=== PATIENT | female | born 1995 | race Asian ===

== ENCOUNTER 2019-06-03 09:43 | Emergency (ER) | payer OTHER, SELFPAY ==
[2019-06-03 09:49] VITALS: BP 120/83; PULSE 91; RESP 16; TEMP 37; O2SAT 100
--- NOTE | 2019-06-03 09:51 | ED.GENADULT ---
HPI - General Adult General Chief complaint: Upper Respiratory Symptoms Stated complaint: Tonsilitis Time Seen by Provider: 06/03/19 09:45 Source: patient Mode of arrival: Ambulatory Limitations: no limitations History of Present Illness HPI narrative: 24-year-old female here for evaluation of a sore throat and muffled voice. States the symptoms been going on for the past week. 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 Has seen her medical department. Has been on decongestants and Cepacol drops and a nasal spray. She is here for his symptoms have not improved. Initial report was that she was on antibiotics however this does not appear to be the case. Related Data Home Medications Medication Instructions Recorded Confirmed ibuprofen 800 mg PO Q8H PRN 06/03/19 06/03/19 Allergies Allergy/AdvReac Type Severity Reaction Status Date / Time No Known Drug Allergies Allergy Verified 06/03/19 09:51 Review of Systems Constitutional Constitutional: Denies fever(s) ENT Ears, Nose, Mouth, and Throat: Reports neck pain, Reports sore throat and Reports throat swelling Cardiovascular Cardiovascular: Denies chest pain and Denies dyspnea Respiratory Respiratory: Denies cough and Denies dyspnea Gastrointestinal Gastrointestinal: Denies abdominal pain, Denies nausea and Denies vomiting Musculoskeletal Musculoskeletal: Denies myalgias, Denies arthralgias and Reports neck pain Integumentary/Breasts Skin/Breast: Denies rash Neurologic Neurologic: Denies behavioral changes Psychiatric Psychiatric: Denies behavioral changes Hematologic/Lymphatic Hematologic/Lymphatic: Denies easy bleeding and Denies easy bruising Allergic/Immunologic Allergic/Immunologic: Reports throat swelling Patient History Medical History Patient denies medical problems (Acute) Social History lives independently: Yes Smoking Status: Never smoker Exam Initial Vital Signs Initial Vital Signs: Vital Signs Temperature 98.6 F 06/03/19 09:49 Pulse Rate 91 H 06/03/19 09:49 Respiratory Rate 16 06/03/19 09:49 Blood Pressure 120/83 06/03/19 09:49 Pulse Oximetry 100 06/03/19 09:49 Const General: cooperative, comfortable and well developed Orientation: alert, awake and oriented x3 HENMT Mouth: oral mucosae normal Throat: abnormal tonsil bilaterally hypertrophy; no exudates, no peritonsillar masses, posterior oropharynx abnormal and no uvular edema Resp Effort & Inspection: normal respiratory effort Auscultation: clear to auscultation bilaterally Cardio Rate: regular rate Rhythm: regular rhythm Skin Lesions: no lesions Rashes: no rashes Neuro General: alert and awake Cognition: normal cognition Speech: speech normal Extrem General: normal to inspection and capillary refill normal Psych Appearance: grossly normal and well kempt Course Orders Ordered: ED Orders 06/03/19 09:50 Throat Culture Stat 06/03/19 10:15 Monotest Stat Test Serum,Qual Stat Discontinued Medications Dexamethasone (Decadron) 10 mg IV NOW ONE Stop: 06/03/19 09:50 Last Admin: 06/03/19 10:20 Dose: 10 mg Documented by: ZACHARY Sodium Chloride (Normal Saline 0.9%) 1,000 mls @ 1,000 mls/hr IV BOLUS ONE Stop: 06/03/19 10:48 Last Admin: 06/03/19 10:20 Dose: 1,000 mls/hr Documented by: ZACHARY Ketorolac Tromethamine (Toradol) 30 mg IV NOW ONE Stop: 06/03/19 09:50 Last Admin: 06/03/19 10:20 Dose: 30 mg Documented by: ZACHARY Penicillin G Benzathine (Bicillin L-A) 1,200,000 unit IM NOW ONE Stop: 06/03/19 11:28 Vital Signs Vital signs: Vital Signs - 8 hr 06/03/19 09:49 Temperature 98.6 F Pulse Rate 91 H Respiratory Rate 16 Blood Pressure 120/83 Pulse Oximetry 100 Medical Decision Making Lab Data Lab results reviewed: Yes I reviewed the patient's lab results. Labs: Lab Results 06/03/19 06/03/19 Range/Units 10:15 10:15 Serum , Qual Negative (Negative) Monoscreen Negative (Negative) Point of Care Testing Rapid Strep A Negative Point of care testing: Point of Care Testing Rapid Strep A Negative MDM Narrative Medical decision making narrative: Patient is maintaining her airway however she does have large tonsils. They are equal bilateral. The uvula is midline. I have low suspicion for peritonsillar abscess/retropharyngeal abscess currently. She is afebrile. She was given medicines here in the ER which she states improved her symptoms quite a bit. She was able to tolerate oral intake. She was able to tolerate her secretions. She was also hydrated. Her mono test was negative. was negative. She does have a negative strep test however I feel that given the low sensitivity of the rapid strep test and the severity of her symptoms that treating her for strep is not unreasonable. We did discuss a IM shot of Bicillin versus oral antibiotics. Patient opted for the Bicillin shot. Patient was given return precautions and follow-up instructions. She expressed understanding and agreement with plan. Discharge Plan Departure Patient Disposition: Home Clinical Impression: Pharyngitis Qualifiers: Pharyngitis/tonsillitis etiology: unspecified etiology Qualified Code(s): J02.9 - Acute pharyngitis, unspecified Instructions: DI for Pharyngitis/Tonsillopharyngitis -- Adult Activity Restrictions/Additional Instructions: Recommend that you increase your fluid intake. Liquids are more important than eating currently however you have no restrictions on your diet. It is just what you can tolerate. Contact your medical department for follow-up. Return to the emergency department for any new or worsening symptoms. Prescriptions: No Action ibuprofen 800 mg Tablet 800 mg PO Q8H PRN (Reason: pain fever) RF: 0 Stand Alone Forms: Work Release Note
[2019-06-03] MEDS: KETOROLAC 60 MG/2 ML VIAL 30 MG IV (10:20)
[2019-06-03] MEDS: SODIUM CHLORIDE 0.9% 1,000 ML 1000 ML IV (10:20)
[2019-06-03] MEDS: DEXAMETHASONE 10 MG/ML VIAL IV (10:20)
[2019-06-03 10:38] LABS: Monotest Negative (Negative)
[2019-06-03 10:47] LABS: Pregnancy Test Serum,Qual Negative (Negative)
[2019-06-03] MEDS: PENICILLIN G BENZATHINE 1,200,000 UNIT/2 ML SYRINGE 1200000 UNIT IM (11:39)
[2019-06-03 11:52] VITALS: BP 108/71; PULSE 82; RESP 17; O2SAT 97
== END 2019-06-03 11:55 | disposition home or self-care (01) ==
PROVIDERS: Emergency Provider Emergency Medicine
DX: J02.9 Acute pharyngitis, unspecified (principal); J35.1 Hypertrophy of tonsils
CPT/HCPCS: 36415; 84703; 86318; 87070; 87880; 96361; 96372; 96374; 96375; 99283; 99284; J0561; J1100; J1885

== ENCOUNTER 2019-06-07 11:17 | Emergency (ER) | payer OTHER, SELFPAY ==
[2019-06-07 11:20] VITALS: BP 116/72; PULSE 79; RESP 16; TEMP 36.7; O2SAT 100; BMI 21.9
--- NOTE | 2019-06-07 11:50 | PC.NURSE ---
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 concern for tonsillar abscess. voice muffled. pt able to maintain her own secretions. able to tolerate fluids. unable to eat solid foods due to swelling. tonsils appear erythematic and swollen. 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
[2019-06-07] MEDS: SODIUM CHLORIDE 0.9% 500 ML 1000 ML IV (12:00)
[2019-06-07] MEDS: ONDANSETRON 4 MG/2 ML INJ IV (12:27)
[2019-06-07] MEDS: DEXAMETHASONE 10 MG/ML VIAL IV (12:27)
[2019-06-07] MEDS: KETOROLAC 60 MG/2 ML VIAL 15 MG IV (12:27)
[2019-06-07 12:41] LABS: Add Manual Diff / Slide Review NO; Basophils Absolute Auto 0 /uL (0-100); Basophils Percent Auto 0.2 % (0-2); Eosinophils Absolute Auto 500 /uL (0-450); Eosinophils Percent Auto 2.8 % (2-4); Hematocrit 41.3 % (36-46); Hemoglobin 14.1 g/dL (12.0-16.0); Lymphocytes Absolute Auto 1900 /uL (1100-4500); Lymphocytes Percent Auto 11.2 % (25-40); Mean Corpuscular Volume 94.1 fL (80-100); Monocytes Absolute Auto 1500 /uL (0-900); Neutrophils Absolute Auto 13300 /uL (1500-7000); Neutrophils Percent Auto 76.8 % (50-75); Platelet Count 445 X10^3/uL (150-400); Red Blood Cell Count 4.39 X10^6/uL (4.0-5.2); Red Cell Distribution Width 12.1 % (11.6-14.8); White Blood Cell Count 17.3 X10^3/uL (4.5-11.0)
[2019-06-07 12:50] LABS: Blood Urea Nitrogen 9 mg/dL (7-17); Calcium 9.3 mg/dL (8.4-10.2); Carbon Dioxide 30 mmol/L (22-32); Chloride 98 mmol/L (98-107); Estimated Glomerular Filt Rate > 60.0 mL/min (>60); Glucose 101 mg/dL (70-100); HEMOLYSIS < 15 (0-50); Potassium 4.3 mmol/L (3.4-5.1); Sodium 138 mmol/L (137-145)
[2019-06-07] MEDS: AMPICILLIN/SULBACTAM 3 GM 3 GM in SODIUM CHLORIDE 0.9% 100 ML IV (12:53)
[2019-06-07 12:55] VITALS: BP 115/71; PULSE 75; RESP 17; O2SAT 100
--- NOTE | 2019-06-07 14:14 | PC.NURSE ---
pt refusing 2nd fluid bolus. PO challenged with water and tolerated well. Oscar, SENIOR QUALITY TECHNICIAN made aware.
--- NOTE | 2019-06-07 14:41 | ED_ITS ---
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 Patient denies fever, chills, nausea or vomiting, cough. She was treated for pharyngitis on Monday with Bicillin LA, IV Decadron, IV fluid. Patient reports the left side sore throat had improved after the treatment but she has recurring right-sided sore throat which radiates to ear. Patient has been hydrating herself with Pedialyte. Patient was referred from [facility] for treatment here. Patient had a CT scan done prior coming into ED this morning and they are concerned for peritons illar abscess. LMP 05/16/19. Patient has been taking ibuprofen at home for discomfort. Related Data Home Medications Medication Instructions Recorded Confirmed ibuprofen 800 mg PO Q8H PRN 06/03/19 06/07/19 Previous Rx's Medication Instructions Recorded amoxicillin-pot clavulanate 1 tab PO Q12H 14 Days #28 tab 06/07/19 [Augmentin] ondansetron 4 mg PO BID-TID 5 Days #7 tab 06/07/19 Allergies Allergy/AdvReac Type Severity Reaction Status Date / Time No Known Drug Allergies Allergy Verified 06/03/19 09:51 Review of Systems <MATT Guerrero - Last Filed: 06/08/19 02:21> Review of Systems Narrative: General: Denies fever, chills, fatigue, malaise, sweats. HEENT: See HPI Respiratory: Denies dyspnea, cough, wheezing, hemoptysis, sputum. Cardiovascular: Denies chest pain, palpitations, orthopnea, edema. Gastrointestinal: Denies nausea, vomiting, abdominal pain, diarrhea, constipation, melena. : Denies dysuria, frequency, incontinence, hematuria, urinary retention. Musculoskeletal: Denies weakness, joint pain or bony pain. Skin: Denies rash, skin lesions, or other. Neurologic: Denies weakness, headache, numbness, change in speech, confusion, seizures, incoordination. Psychiatric: No concerning psychosocial issues. 12-point review of systems is negative except for those stated above. Patient History <MATT Guerrero - Last Filed: 06/08/19 02:21> Medical History Patient denies medical problems (Acute) Social History lives independently: Yes Smoking Status: Never smoker alcohol intake frequency: 0-2 drinks per day Substance Use Type: does not use Exam <MATT Guerrero - Last Filed: 06/08/19 02:21> Narrative Exam Narrative: General appearance: well developed, well nourished, in no acute distress. Spitting saliva in emesis bag frequently due to pain to swallow. Head: normocephalic, atraumatic, no scalp lesions, non-tender. Eye: pupil equal, round. EOMI. Neck/Thyroid: neck supple, full range of motion, no visible masses. Skin: no suspicious rashes, lesions over visible areas. Warm and dry. Heart: no clubbing, no cyanosis, no edema. Lungs: Breathing even and unlabored. No stridor. No accessory muscles used. Chest: normal shape and expansion. Abdomen: non-obese, non-distended. Neurologic: alert and oriented. Cognitive exam, MANAGER OF ENGINEERING and PNS grossly intact on informal exam. Psych: good eye contact, normal affect. Initial Vital Signs Initial Vital Signs: Vital Signs Temperature 98.1 F 06/07/19 11:20 Pulse Rate 79 06/07/19 11:20 Respiratory Rate 16 06/07/19 11:20 Blood Pressure 116/72 06/07/19 11:20 Pulse Oximetry 100 06/07/19 11:20 HENMT Ears: hearing grossly normal bilaterally, external ears normal and TM's normal bilaterally Nose: external nose normal Face and sinus: normal facial exam Mouth: oral mucosae normal, lip normal, tongue normal and muffled voice Teeth and gingiva: dentition normal and gingiva normal Throat: peritonsillar mass on the right and uvula laterally displaced (To left) <Laura Garland DO - Last Filed: 06/08/19 07:10> Initial Vital Signs Initial Vital Signs: Vital Signs Temperature 98.1 F 06/07/19 11:20 Pulse Rate 79 06/07/19 11:20 Respiratory Rate 16 06/07/19 11:20 Blood Pressure 116/72 06/07/19 11:20 Pulse Oximetry 100 06/07/19 11:20 Scores <Oscar MATT Reyez - Last Filed: 06/08/19 02:21> GCS [place] coma scale eye opening: Spontaneous [place] coma scale verbal response: Orientated [place] coma scale motor response: Obey commands Lisseth coma scale total score: 15 Course <Oscar MATT Reyez - Last Filed: 06/08/19 02:21> Orders Ordered: Discontinued Medications Dexamethasone (Decadron) 10 mg IV NOW ONE Stop: 06/07/19 12:03 Last Admin: 06/07/19 12:27 Dose: 10 mg Documented by: KOFI Sodium Chloride (Normal Saline 0.9%) 500 mls @ 1,000 mls/hr IV BOLUS PRN PRN Reason: Fluid replacement Ampicillin Sodium/Sulbactam (Sodium 3 gm/ Sodium Chloride) 100 mls @ 100 mls/hr IV NOW ONE Stop: 06/07/19 12:06 Last Infusion: 06/07/19 13:46 Dose: 0 mls/hr Documented by: Admin: 06/07/19 12:53 Dose: 100 mls/hr Documented by: KOFI Sodium Chloride (Normal Saline 0.9%) 500 mls @ 1,000 mls/hr IV BOLUS ONE Stop: 06/07/19 14:09 Last Infusion: 06/07/19 13:43 Dose: 0 mls/hr Documented by: Admin: 06/07/19 12:00 Dose: 1,000 mls/hr Documented by: KOFI Sodium Chloride (Normal Saline 0.9%) 1,000 mls @ 1,000 mls/hr IV BOLUS ONE Stop: 06/07/19 15:07 Last Admin: 06/07/19 14:13 Dose: Not Given Documented by: KOFI Ketorolac Tromethamine (Toradol) 15 mg IV NOW ONE Stop: 06/07/19 12:03 Last Admin: 06/07/19 12:27 Dose: 15 mg Documented by: KOFI Ondansetron HCl (Zofran) 4 mg IV NOW ONE Stop: 06/07/19 12:09 Last Admin: 06/07/19 12:27 Dose: 4 mg Documented by: KOFI Vital Signs Vital signs: Vital Signs - 8 hr 06/07/19 11:20 06/07/19 12:55 Temperature 98.1 F Pulse Rate 79 75 Respiratory Rate 16 17 Blood Pressure 116/72 Blood Pressure [Left Arm] 115/71 Pulse Oximetry 100 100 <Laura Garland DO - Last Filed: 06/08/19 07:10> Orders Ordered: Discontinued Medications Dexamethasone (Decadron) 10 mg IV NOW ONE Stop: 06/07/19 12:03 Last Admin: 06/07/19 12:27 Dose: 10 mg Documented by: KOFI Sodium Chloride (Normal Saline 0.9%) 500 mls @ 1,000 mls/hr IV BOLUS PRN PRN Reason: Fluid replacement Ampicillin Sodium/Sulbactam (Sodium 3 gm/ Sodium Chloride) 100 mls @ 100 mls/hr IV NOW ONE Stop: 06/07/19 12:06 Last Infusion: 06/07/19 13:46 Dose: 0 mls/hr Documented by: Admin: 06/07/19 12:53 Dose: 100 mls/hr Documented by: KOFI Sodium Chloride (Normal Saline 0.9%) 500 mls @ 1,000 mls/hr IV BOLUS ONE Stop: 06/07/19 14:09 Last Infusion: 06/07/19 13:43 Dose: 0 mls/hr Documented by: Admin: 06/07/19 12:00 Dose: 1,000 mls/hr Documented by: KOFI Sodium Chloride (Normal Saline 0.9%) 1,000 mls @ 1,000 mls/hr IV BOLUS ONE Stop: 06/07/19 15:07 Last Admin: 06/07/19 14:13 Dose: Not Given Documented by: KOFI Ketorolac Tromethamine (Toradol) 15 mg IV NOW ONE Stop: 06/07/19 12:03 Last Admin: 06/07/19 12:27 Dose: 15 mg Documented by: KOFI Ondansetron HCl (Zofran) 4 mg IV NOW ONE Stop: 06/07/19 12:09 Last Admin: 06/07/19 12:27 Dose: 4 mg Documented by: KOFI Vital Signs Vital signs: Vital Signs - 8 hr 06/07/19 11:20 06/07/19 12:55 Temperature 98.1 F Pulse Rate 79 75 Respiratory Rate 16 17 Blood Pressure 116/72 Blood Pressure [Left Arm] 115/71 Pulse Oximetry 100 100 MDM - URI/Sore Throat <Oscar MATT Reyez - Last Filed: 06/08/19 02:21> Differential Diagnosis Differential diagnosis: Likely pharyngitis and other (Peritonsillar abscess) Medical Records Attestation: I reviewed the patient's medical records. Lab Data Attestation: I reviewed the patient's lab results. Result diagrams: 06/07/19 12:33 06/07/19 12:33 Labs: Lab Results 06/07/19 06/07/19 Range/Units 12:33 12:33 WBC 17.3 H (4.5-11.0) X10^3/uL RBC 4.39 (4.0-5.2) X10^6/uL Hgb 14.1 (12.0-16.0) g/dL Hct 41.3 (36-46) % MCV 94.1 (80-100) fL MCH 32.0 (26-34) PG MCHC 34.0 (30-36) % RDW 12.1 (11.6-14.8) % Plt Count 445 H (150-400) X10^3/uL Neut % (Auto) 76.8 H (50-75) % Lymph % (Auto) 11.2 L (25-40) % Hudspeth % (Auto) 9.0 (3-14) % Eos % (Auto) 2.8 (2-4) % Baso % (Auto) 0.2 (0-2) % Neut # (Auto) 99652 H (5020-3952) /uL Lymph # (Auto) 1900 (1974-8067) /uL [place]ud[place] # (Auto) 1500 H (0-900) /uL Eos # (Auto) 500 H (0-450) /uL Baso # (Auto) 0 (0-100) /uL Sodium 138 (137-145) mmol/L Potassium 4.3 (3.4-5.1) mmol/L Chloride 98 (98-107) mmol/L Carbon Dioxide 30 (22-32) mmol/L BUN 9 (7-17) mg/dL Creatinine 0.60 (0.52-1.04) mg/dL Estimated GFR > 60.0 (>60) mL/min BUN/Creatinine Ratio 15.0 (6-22) Glucose 101 H (70-100) mg/dL Calcium 9.3 (8.4-10.2) mg/dL MDM Narrative Medical decision making narrative: This is 24-year-old female who recently treated for pharyngitis 4 days ago with Bicillin LA injection return to ED with right-sided throat pain, swelling, muffled voice. Patient reports after the treatment on Monday, patient feel improvement on left side sore throat and swelling. Patient states is able to tolerate oral hydration and medications but hurts to swallow. Patient denies constitutional symptoms. Patient brought CD of her neck CT from this morning with a written report and was not interpreted at this time. However, patient was told she has peritonsillar abscess and needs to be drained. Physical exam shows significantly swollen right-sided tonsil was pushing uvula to the left side. Left test today shows leukocytosis with left shift with unremarkable chemistry. Patient was treated with IV hydration, Decadron, Unasyn 3 g, and Toradol. Patient reports the swelling and pain were improved and she was able to tolerate IV fluids without difficulty. Patient declined 2nd L of normal saline hydration. Patient requested for abcess drainage but was explained to the patient that this is not needed at this time. Patient is able to tolerate fluids and breathe without difficulty at this time and she will be treated conservatively with antibiotic medication. Patient has been afebrile with normal vital signs while in ED. Patient discharged to home with Augmentin for 14 day course and return precautions were discussed with the patient. She was given work off note for a day and to follow up with primary care physician in 2-3 days. Patient verbalized understanding and agrees with the treatment plan. <Laura Garland DO - Last Filed: 06/08/19 07:10> Lab Data Labs: Lab Results 06/07/19 06/07/19 Range/Units 12:33 12:33 WBC 17.3 H (4.5-11.0) X10^3/uL RBC 4.39 (4.0-5.2) X10^6/uL Hgb 14.1 (12.0-16.0) g/dL Hct 41.3 (36-46) % MCV 94.1 (80-100) fL MCH 32.0 (26-34) PG MCHC 34.0 (30-36) % RDW 12.1 (11.6-14.8) % Plt Count 445 H (150-400) X10^3/uL Neut % (Auto) 76.8 H (50-75) % Lymph % (Auto) 11.2 L (25-40) % Hud[place] % (Auto) 9.0 (3-14) % Eos % (Auto) 2.8 (2-4) % Baso % (Auto) 0.2 (0-2) % Neut # (Auto) 37705 H (1825-8240) /uL Lymph # (Auto) 1900 (0906-3716) /uL Hudspeth # (Auto) 1500 H (0-900) /uL Eos # (Auto) 500 H (0-450) /uL Baso # (Auto) 0 (0-100) /uL Sodium 138 (137-145) mmol/L Potassium 4.3 (3.4-5.1) mmol/L Chloride 98 (98-107) mmol/L Carbon Dioxide 30 (22-32) mmol/L BUN 9 (7-17) mg/dL Creatinine 0.60 (0.52-1.04) mg/dL Estimated GFR > 60.0 (>60) mL/min BUN/Creatinine Ratio 15.0 (6-22) Glucose 101 H (70-100) mg/dL Calcium 9.3 (8.4-10.2) mg/dL Discharge Plan Departure Patient Disposition: Home Clinical Impression: Abscess, peritonsillar Discharge Date/Time: 06/07/19 14:56 Instructions: DI for Peritonsillar Abscess -- Adult Activity Restrictions/Additional Instructions: You have been diagnosed with [Peritonsilar abscess and pharyngitis. You were treated with IV fluids, Decadron for swelling, IV antibiotic medications and pain medications here.]. What to do: *Take your medications as directed. Please start Augmentin tonight as a 1st dose for next 14 days twice a day. Please incorporate probiotics to prevent diarrhea. You can use Zofran as needed for nausea or vomiting. Continue to take [id number] Tylenol and or Motrin as needed for discomfort and fever. *Follow up with your primary care provider in 2-3 days, call for an appointment. Let them know you were seen in the ED and that we asked you to be seen in follow up. *Return to ED if you have any new, worsening, or concerning symptoms, such as [breathing difficulty, unable to tolerate fluids, chest pain, feeling like faint, high fever, or any acute concerns]. Prescriptions: New amoxicillin-pot clavulanate [Augmentin] 875-125 mg tablet 1 tab PO Q12H 14 Days Qty: 28 RF: 0 ondansetron 4 mg tablet,disintegrating 4 mg PO BID-TID 5 Days Qty: 7 RF: 0 No Action ibuprofen 800 mg Tablet 800 mg PO Q8H PRN (Reason: pain fever) RF: 0 Referrals: [facility] [Outside] Stand Alone Forms: Work Release Note
[2019-06-07 14:55] VITALS: BP 112/68; PULSE 74; RESP 16; O2SAT 97
== END 2019-06-07 14:56 | disposition home or self-care (01) ==
PROVIDERS: Emergency Provider Nurse Practitioner Family
DX: J36 Peritonsillar abscess (principal)
CPT/HCPCS: 36415; 80048; 85025; 96361; 96365; 96375; 99283; 99284; J0295; J1100; J1885; J2405

== ENCOUNTER → 2020-12-09 11:41 | Outpatient (CLI) | payer OTHER, SELFPAY ==
[2020-12-09 12:25] LABS: Appearance Urine UA CLEAR; Bilirubin Urine UA NEGATIVE (NEGATIVE); Color Urine UA YELLOW; Glucose Urine UA NEGATIVE (Negative); Ketones Urine UA NEGATIVE (NEGATIVE); Leukocyte Esterase Urine UA NEGATIVE (NEGATIVE); Nitrite Urine UA NEGATIVE (Negative); Occult Blood Urine UA 2+ (Negative); Protein Urine UA NEGATIVE (Negative); Urobilinogen Urine UA 0.2 E.U./dL (0.2); pH Urine UA 5.5 (4.5-8.0)
[2020-12-09 12:26] LABS: Bacteria Urine None Seen; RBC Urine None Seen (0-5/HPF); WBC Urine None Seen (0-5/HPF)
[2020-12-09 12:47] LABS: Add Manual Diff / Slide Review NO; Basophils Absolute Auto 100 /uL (0-100); Basophils Percent Auto 0.5 % (0-2); Eosinophils Absolute Auto 500 /uL (0-450); Eosinophils Percent Auto 3.1 % (2-4); Hemoglobin 13.6 g/dL (12.0-16.0); Lymphocytes Absolute Auto 2000 /uL (1100-4500); Lymphocytes Percent Auto 13.3 % (25-40); Mean Corpuscular HGB Conc 34.1 % (30-36); Mean Corpuscular Hemoglobin 31.8 PG (26-34); Mean Corpuscular Volume 93.4 fL (80-100); Monocytes Absolute Auto 1100 /uL (0-900); Monocytes Percent Auto 7.5 % (3-14); Neutrophils Absolute Auto 11300 /uL (1500-7000); Neutrophils Percent Auto 75.6 % (50-75); Platelet Count 287 X10^3/uL (150-400); Red Blood Cell Count 4.29 X10^6/uL (4.0-5.2); Red Cell Distribution Width 11.9 % (11.6-14.8); White Blood Cell Count 14.9 X10^3/uL (4.5-11.0)
[2020-12-09 12:53] LABS: Culture Indicated Urine Cult Not Indicated
[2020-12-10 06:39] LABS: RPR Screen Non Reactive (Non Reactive)
[2020-12-10 12:36] LABS: Varicella IgG Antibody <135 index (Immune >165)
[2020-12-10 15:51] LABS: Hepatitis B Surface Antigen NEGATIVE s/c (NEGATIVE); Rubella Antibody IgG 48.9 IU/mL (>15)
[2020-12-10 16:04] LABS: HIV 1 & 2 Ab/Ag 4th Gen Combo NEGATIVE (NEGATIVE); Hep C Virus Ab w/Reflex Quant NEGATIVE s/c (NEGATIVE)
== END ==
PROVIDERS: Referring Provider Specialist; Visit Provider Specialist
DX: Z34.01 Encounter for supervision of normal first pregnancy, first trimester (principal)
CPT/HCPCS: 36415; 80055; 81003; 81015; 86787; 86803; 86850; 86900; 86901; 87086; 87389

== ENCOUNTER → 2021-01-06 11:32 | Outpatient (CLI) | payer OTHER, SELFPAY ==
[2021-01-06 15:13] LABS: Urine N gonorrhoeae NOT DETECTED
[2021-01-06 15:18] LABS: Urine Chlamydia NOT DETECTED
== END ==
PROVIDERS: Visit Provider Specialist
DX: Z34.01 Encounter for supervision of normal first pregnancy, first trimester (principal); Z3A.12 12 weeks gestation of pregnancy
CPT/HCPCS: 87491; 87591

== ENCOUNTER → 2021-02-05 17:01 | Outpatient (CLI) | payer OTHER, SELFPAY ==
[2021-02-09 20:44] LABS: AFP, Serum 35.1 ng/mL (.); Estriol, Free 1.21 ng/mL (.); Inhibin A, Dimeric 105.71 pg/mL (.); Inhibin A, MoM 0.62 (.); Maternal Ethnicity Other (.); Maternal Weight 130 lbs (.); Number of Fetuses No (.); OSBR Risk 1 IN 10000 (.); Results Report (.); Test Results *Screen Negative* (.); hCG, MoM 0.45 (.); hCG, Serum 16065 mIU/mL (.)
== END ==
PROVIDERS: Referring Provider Specialist; Visit Provider Specialist
DX: Z34.02 Encounter for supervision of normal first pregnancy, second trimester (principal); Z3A.17 17 weeks gestation of pregnancy
CPT/HCPCS: 36415; 82105; 82677; 84702; 86336

== ENCOUNTER → 2021-03-02 07:26 | Outpatient (CLI) | payer OTHER, SELFPAY ==
--- NOTE | 2021-03-02 07:27 | DI.US.S_ITS ---
PROCEDURE: US OB >= 14 WEEKS FETUS INDICATIONS: ANATOMY OUTSIDE/PRIOR DATING DATA: Last menstrual period (LMP): 10/08/20. LMP-based estimated date of delivery (MAHIN): 07/15/21 . First dating scan (date and location): 12/09/20 . Estimated date of delivery (MAHIN) from first dating scan: 07/14/21 . TECHNIQUE: Real-time scanning was performed of the fetus, with image documentation and biometric measurements. Endovaginal scanning: Not needed COMPARISON: [facility], , OB >= 14 WEEKS FETUS, 02/05/2021, 16:49. FINDINGS: General: A single living intrauterine gestation is present. Presentation: Breech. Placenta: Placental position is posterior , without previa. Lower placental edge 2 cm or less from internal cervical os qualifies as low lying placenta. Amniotic fluid index: 12.9 cm, normal range is 5-24 cm. heart rate: 149 beats per minute. Maternal cervical canal: 3.1 cm long. Normal lower limit is 2.5 cm. biometrics: Biparietal diameter: 4.8 cm, 20 weeks 4 days Head circumference: 18.2 cm, 20 weeks 4 days Abdominal circumference: 16.9 cm, 21 weeks 6 days Femur length: 3.4 cm, 20 weeks 5 days Estimated gestational age from initial scan: 20 weeks 6 days Composite gestational age from present scan: 21 weeks 0 days Estimated weight and percentile: 410 g, 67th percentile Measurement variability for biometric dating: +/- 7 days from 14 weeks to 15 weeks 6 days gestation, +/- 10 days from 16 weeks to 21 weeks 6 days gestation, +/- 2 weeks from 22 weeks to 27 weeks 6 days gestation, +/- 3 weeks for 28 weeks gestation or later. weight reference: 4500 g or EFW >90/95% is considered macrosomia or large for gestational age. EFW <10% is small for gestational age. EFW 5% or less is considered intra-uterine growth restriction. Anatomic survey: Neuro: Ventricles are non-dilated at less than 10 mm. Cisterna magna is normal at 3-11 mm. Cerebellum is normal in size and morphology. Nuchal skin fold: Normal at less than 6 mm between 14-21 weeks gestational age. Face: Nose and lips, facial profile are normal. Spine: No evidence for spina bifida. Heart: 4-chambered heart is present, with normal ventricular outflow tracts. Diaphragm: Diaphragm is intact. Stomach: Left-sided stomach is present. Kidneys: No hydronephrosis. Normal is less than 5 mm in 2nd trimester, less than 7 mm in 3rd trimester. Cord: 3-vessel cord has orthotopic insertion. Bladder: Normal in size. Extremities: All 4 extremities identified. IMPRESSION: Appropriate interval growth, no anomaly seen. Delivery date is projected to be centered on 07/14/21. Dictated by: Darnell Funk M.D. on 03/02/2021 at 10:51 Approved by: Darnell Funk M.D. on 03/02/2021 at 11:00
== END ==
PROVIDERS: Referring Provider Specialist; Visit Provider Specialist
DX: Z34.02 Encounter for supervision of normal first pregnancy, second trimester (principal); Z3A.21 21 weeks gestation of pregnancy
CPT/HCPCS: 76811

== ENCOUNTER → 2021-04-02 09:59 | Outpatient (CLI) | payer OTHER, SELFPAY ==
[2021-04-02 11:52] LABS: Hemoglobin 12.2 g/dL (12.0-16.0)
[2021-04-02 12:05] LABS: GTT (PREG) 1 Hour PP 50gm Dose 151 mg/dL (76-139)
== END ==
PROVIDERS: Referring Provider Specialist; Visit Provider Specialist
DX: Z34.02 Encounter for supervision of normal first pregnancy, second trimester (principal); Z3A.25 25 weeks gestation of pregnancy
CPT/HCPCS: 36415; 82950; 85014; 85018

== ENCOUNTER → 2021-04-06 06:51 | Outpatient (CLI) | payer OTHER, SELFPAY ==
[2021-04-06 09:56] LABS: Glucose 1 Hour Gest 154 mg/dL (76-180)
[2021-04-06 10:05] LABS: Glucose Fasting Gestational 79 mg/dL (76-95)
[2021-04-06 10:09] LABS: Glucose 2 Hour Gest 131 mg/dL (76-155)
[2021-04-06 10:28] LABS: Glucose Tol Interp,Gestational INTERPRETATION
[2021-04-06 10:49] LABS: Glucose 3 Hour Gest 142 mg/dL (76-140)
== END ==
PROVIDERS: Referring Provider Specialist; Visit Provider Specialist
DX: O99.810 Abnormal glucose complicating pregnancy (principal)
CPT/HCPCS: 36415; 82951; 82952

== ENCOUNTER → 2021-06-17 11:52 | Outpatient (CLI) | payer OTHER, SELFPAY ==
[2021-06-18 19:35] LABS: Strep Grp B PCR NEG for Grp B Strep
== END ==
PROVIDERS: Referring Provider Specialist; Visit Provider Specialist
DX: Z34.03 Encounter for supervision of normal first pregnancy, third trimester (principal); Z3A.36 36 weeks gestation of pregnancy
CPT/HCPCS: 87653

== ENCOUNTER 2021-07-15 08:23 | Outpatient (CLI) | payer OTHER, SELFPAY ==
--- NOTE | 2021-07-15 08:55 | PM.OBTRLD ---
Visit Information Visit Information Date of evaluation: 07/15/21 Primary OB Provider: Vale Catalan Reason for Evaluation: Yes non-stress test Comments/Additional reasons for admission: Post dates [facility] Medical History (Updated 07/15/21 @ 08:56 by Vale Catalan MD) Cervical Papanicolaou smear negative within last 12 months (~11/19/19) HSIL (high grade squamous intraepithelial lesion) on Pap smear of cervix (~07/13/16) LGSIL (low grade squamous intraepithelial dysplasia) (~02/14/18) Patient denies medical problems Tonsillitis Surgical History [place] teeth extracted (~2015) Family History Mother No problems noted. Father Family estrangement Grandmother Hypertension Diabetes mellitus Grandfather Old age Grandmother Family estrangement Unknown whether patient has any health problems Grandfather Unknown whether patient has any health problems Family estrangement Brother No problems noted. 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 deven/taoism: Religious special deven needs: No Smoking Status: Never smoker second hand exposure: No alcohol intake: former (pre- : social/on weekends) substance use type: does not use Evaluation Evaluation Baseline heart rate: 130 Variability: Moderate (11-25) monitor accelerations: Present Monitor Decelerations: Absent Status: Category l Diagnosis, Plan/Disposition Final Diagnosis (1) 40 weeks gestation of : Status: Acute Plan/Disposition Plan: 40 weeks gestation with reactive nonstress test. Patient has an appointment for follow-up in 5 days. Routine precautions reviewed. OB Disposition: home
== END 2021-07-15 09:04 | disposition home or self-care (01) ==
LOC: OB 07-16 14:04
PROVIDERS: Referring Provider Specialist; Visit Provider Specialist
DX: O48.0 Post-term pregnancy (principal); Z3A.40 40 weeks gestation of pregnancy
CPT/HCPCS: 59025; G0378; G0379

== ENCOUNTER 2021-07-18 22:15 | Inpatient (IN) | payer OTHER, SELFPAY ==
[2021-07-18 23:28] LABS: Add Manual Diff / Slide Review NO; Basophils Absolute Auto 100 /uL (0-100); Basophils Percent Auto 0.8 % (0-2); Eosinophils Absolute Auto 200 /uL (0-450); Eosinophils Percent Auto 1.4 % (2-4); Hematocrit 40.5 % (36-46); Hemoglobin 13.7 g/dL (12.0-16.0); Lymphocytes Absolute Auto 1500 /uL (1100-4500); Lymphocytes Percent Auto 10.8 % (25-40); Mean Corpuscular HGB Conc 33.8 % (30-36); Mean Corpuscular Hemoglobin 31.2 PG (26-34); Mean Corpuscular Volume 92.3 fL (80-100); Monocytes Absolute Auto 1200 /uL (0-900); Monocytes Percent Auto 8.4 % (3-14); Neutrophils Absolute Auto 11200 /uL (1500-7000); Neutrophils Percent Auto 78.6 % (50-75); Platelet Count 220 X10^3/uL (150-400); Red Blood Cell Count 4.38 X10^6/uL (4.0-5.2); Red Cell Distribution Width 13.5 % (11.6-14.8); White Blood Cell Count 14.2 X10^3/uL (4.5-11.0)
[2021-07-18] MEDS: ZOLPIDEM 5 MG TABLET 10 MG PO (23:41)
[2021-07-19] VITALS (8 sets, daily range): BP systolic 116–131; BP diastolic 64–82; PULSE 82–103; RESP 16–18; TEMP 37.9–38.8; O2SAT 98–99
[2021-07-19 00:45] LABS: COVID19 -Nasal RAPID Negative (Negative)
[2021-07-19] MEDS: LACTATED RINGERS 1,000 ML 100 ML IV ×4 (04:55→21:10)
[2021-07-19] MEDS: OXYTOCIN PREMIX 30 UNIT/500 ML PLAST..BAG IV (05:50)
--- NOTE | 2021-07-19 10:02 | P.HPOB_ITS ---
OB HPI Date/Time Date of admission: 07/19/21 Date Patient Seen: 07/19/21 Time Patient Seen: 10:02 History of Present Condition Chief complaint: WATER RUPTURED : 1 Para: 0 Estimated Date of Delivery: 07/15/21 Estimated Gestational Age (weeks): 40 Narrative: Eula Mendoza is a 26 year old female admitted with spontaneous rupture membranes not in active labor History of Present care: good care, initiated at week # (8), number of visits (14) and pounds weight gain (43) Dating criteria: LMP confirmed by 1st trimester US Ultrasounds: normal mid trimester US Obstetrical complications: none Medical complications: none Preadmission Labs Blood type: O (+) positive -: Antibody screen: negative, GBS status: negative, HBsAG: negative, HIV: negative and RPR/VDLR: negative -: Chlamydia screen: not detected and Gonorrhea screen: not detected -: Rubella: immune and Varicella: not immune HCAB: negative Quad screen: Normal 1 hr GTT: 154 3 hr GTT: 1 hr (154), 2 hr (131) and 3 hr (142) Fasting blood glucose: 79 Evaluation Evaluation Baseline heart rate: 140 Variability: Moderate (11-25) monitor accelerations: Present Monitor Decelerations: Absent Contraction Frequency (minutes): 3 Uterine Contraction Intensity: Moderate Category of Tracing: Reactive Status: Category l Dilation (cm): 4 Effacement (%): 75 station: -1 Position of cervix: mid Consistency: medium PFSH Medical History (Updated 07/15/21 @ 08:56 by Vale Catalan MD) Cervical Papanicolaou smear negative within last 12 months (~11/19/19) HSIL (high grade squamous intraepithelial lesion) on Pap smear of cervix (~07/13/16) LGSIL (low grade squamous intraepithelial dysplasia) (~02/14/18) Patient denies medical problems Tonsillitis Surgical History [place] teeth extracted (~2015) Family History Mother No problems noted. Father Family estrangement Grandmother Hypertension Diabetes mellitus Grandfather Old age Grandmother Family estrangement Unknown whether patient has any health problems Grandfather Unknown whether patient has any health problems Family estrangement Brother No problems noted. 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 deven/jehovah's witness: [employer] special deven needs: No Smoking Status: Never smoker second hand exposure: No alcohol intake: former (pre- : social/on weekends) substance use type: does not use Meds Home Medications and Allergies Home Medications Medication Instructions Recorded Confirmed Type prenat.vits,kristin,uar-xgaq-esfwp 1 tab PO DAILY 12/02/20 07/19/21 History Allergies Allergy/AdvReac Type Severity Reaction Status Date / Time No Known Drug Allergies Allergy Verified 12/09/20 11:12 Review of Systems Review of Systems Narrative: Patient have leakage fluid beginning at 9:30 p.m. on 07/18. Good movement. Now having increased contractions on Pitocin. No headaches, scotomata, epigastric pain. OB Exam Narrative Exam Narrative: Blood pressure 139/84, pulse 93, temperature 97.8? HEENT exam within normal limits. Lungs are clear to auscultation percussion. Heart is regular rate and rhythm no S3-S4 murmurs. Abdomen is gravid. Fetus is vertex. Extremities without edema and nontender Objective Labs Result Diagrams: 07/18/21 23:00 Labs: Laboratory Results - last 24 hr 07/18/21 07/18/21 07/19/21 23:00 23:00 00:00 WBC 14.2 H RBC 4.38 Hgb 13.7 Hct 40.5 MCV 92.3 MCH 31.2 MCHC 33.8 RDW 13.5 Plt Count 220 Neut % (Auto) 78.6 H Lymph % (Auto) 10.8 L [place] % (Auto) 8.4 Eos % (Auto) 1.4 L Baso % (Auto) 0.8 Neut # (Auto) 35186 H Lymph # (Auto) 1500 [place] # (Auto) 1200 H Eos # (Auto) 200 Baso # (Auto) 100 SARS-CoV-2 (PCR) Negative Blood Type O Positive Antibody Screen Negative Assessment and Plan Assessment and Plan Assessment and Plan narrative: 40 week gestation with spontaneous rupture of membranes. Pitocin begun. Patient is requesting epidural catheter for pain control. Anticipate vaginal delivery.
[2021-07-19] MEDS: CALCIUM CARBONATE 500 MG TAB 1000 MG PO (16:54)
[2021-07-19] MEDS: FENT 2MCG/ML BUPIV 0.125% EPI 200 MCG/100 ML PLAST..BAG 10 MCG EPIDURAL (17:46)
[2021-07-19] MEDS: fentaNYL 100 MCG/2 ML INJ IV (18:22)
--- NOTE | 2021-07-19 18:32 | PM.PREOP ---
Pre-operative Note COVID-19 COVID-19 status: Negative Result date/Date tested (Pos, Neg/Pending): 07/19/21 Interval Note History & Physical reviewed/Exam performed by Physician: Yes Changes to H&P: Yes H&P completed within 30 days and has changed as indicated here:: 1st stage arrest
--- NOTE | 2021-07-19 18:33 | PM.OBPNLAB ---
Date/Time Date Patient Seen: 07/19/21 Time Patient Seen: 18:33 Pain Control Pain control: epidural Pelvic Exam Dilation (cm): 8 Effacement (%): 75 station: -1 Contractions Contractions on admission: regular Monitor mode: External Contraction frequency (min): 3 Contraction duration (min): 1 Contraction pattern: Regular Contraction intensity: Strong/Firm Status status: Category l Heart Rate Baseline: 150 Monitor Accelerations: Present Monitor Decelerations: Periodic Monitor Variability: Moderate Assessment and Plan Plan: Comments: 1st stage arrest plan for section
[2021-07-19] MEDS: CEFAZOLIN 2 GM/20 ML SYRINGE IV (19:04)
--- NOTE | 2021-07-19 19:14 | SUR.OPER ---
Supine on Padded OR bed, head on pillow, safety belt at thigh, arms secured on padded arm boards at <90 degrees abduction. Bump under right buttock. Legs uncrossed with pillow under knees, gel pad to heels, tape over blanket to lower legs.
--- NOTE | 2021-07-19 19:21 | SUR.OPER ---
VIABLE MALE INFANT DELIVERED AT 1914. CORD BLOOD AND PLACENTA TO OB WITH RN
--- NOTE | 2021-07-19 20:07 | PM.OP.1 ---
Operative Date/Time/Diagnoses Date of procedure: 07/19/21 Time of procedure: 20:07 Pre-op diagnosis: 1st stage arrest Post-op diagnosis: same Procedure & Clinicians Procedure: Primary low-transverse section Same procedure as scheduled: Yes Indications: 1st stage arrest Surgeon: Vale Catalan Click Yes if Unassisted: Yes Anesthesia Type: Epidural Operative Notes Findings: Normal tubes, ovaries, and uterus. Viable male infant in the direct OP position. Apgars were 9 and 9 weight 7 lb 13 oz Closure Type: primary Specimen(s): none sent Applied: catheter (Casillas) Estimated Blood Loss (mL): 400 Blood products transfused: none Procedure in detail: The patient was brought to the operating room where she underwent bolus of her epidural for anesthesia. She was placed in a supine position with a left lateral tilt. A [place] catheter was in place. Pulsatile stockings were placed and functional throughout the case. 2 g of Ancef were given IV prior to the incision. Warming was in place. The patient was prepped and draped in usual sterile fashion. A low transverse incision was made with a scalpel and the incision was carried down to the fascial layer which was incised transversely with scissors. The midline attachments are superiorly and inferiorly. Some bleeding was controlled Bovie. The rectus muscles were in the midline and the peritoneal incision was made with no damage to internal structures. The peritoneum was incised and superiorly and inferiorly. The incision was stretched with the surgeon and blood and plasma laboratory assistant placing traction. Bladder blade was placed and a bladder flap was developed and the bladder held away from the lower uterine segment. An incision was made in the uterus with the scalpel and the incision was extended with stretching. The head was elevated out of the abdomen and with fundal pressure by the blood and plasma laboratory assistant the baby was delivered. The infant was bulb suctioned for clear fluid and handed off to the warmer. Cord blood was collected. The placenta delivered spontaneously with traction. The uterus was cleaned with clean laps. The uterine incision was closed in 2 layers of 0 chromic suture the first a running locking layer the second an imbricating layer. The blood and plasma laboratory assistant was helping to expose the incision. The bladder peritoneum was repaired with 2-0 Vicryl suture. The gutters were cleaned of any remaining fluids and ovaries and tubes were observed to be normal. Adequate hemostasis was noted. The perineum was closed with 2-0 Vicryl suture. The fascia layer was closed with 0 Vicryl suture with 2 stitches. The blood and plasma laboratory assistant repairing half the incision with helping to retract and expose the incision for the other half. The incision was irrigated and adequate hemostasis noted. The incision was closed with interrupted 3-0 Vicryl sutures and then a subcuticular stitch of 4-0 Vicryl suture. Steri-Strips were placed. The uterus was massaged to remove any clots. The patient went to recovery room in good condition. Counts of instruments and sponges were correct. Complications: none Post-operative Condition: stable Disposition: other ( Center) Plan for aftercare: Routine post section care
[2021-07-19] MEDS: OXYCODONE IR 5 MG TABLET PO (20:20)
--- NOTE | 2021-07-19 20:38 | SUR.PHASEI ---
Transferred to center. Recieved in room by LEEANNA Guzmán.
[2021-07-19] MEDS: ACETAMINOPHEN 325 MG TABLET 650 MG PO (21:00)
[2021-07-19] MEDS: METHYLERGONOVINE 0.2 MG/ML VIAL IM (21:46)
[2021-07-20] MEDS: miSOPROStoL 200 MCG TABLET 800 MCG PR (01:24)
[2021-07-20 02:12] VITALS: TEMP 37.2
[2021-07-20] MEDS: KETOROLAC 30 MG/ML VIAL IV (02:12)
[2021-07-20 06:51] LABS: Add Manual Diff / Slide Review NO; Basophils Absolute Auto 100 /uL (0-100); Basophils Percent Auto 0.2 % (0-2); Eosinophils Absolute Auto 0 /uL (0-450); Hematocrit 34.3 % (36-46); Hemoglobin 11.8 g/dL (12.0-16.0); Lymphocytes Absolute Auto 1300 /uL (1100-4500); Lymphocytes Percent Auto 4.3 % (25-40); Mean Corpuscular HGB Conc 34.3 % (30-36); Mean Corpuscular Hemoglobin 31.4 PG (26-34); Mean Corpuscular Volume 91.6 fL (80-100); Monocytes Absolute Auto 2000 /uL (0-900); Monocytes Percent Auto 6.5 % (3-14); Neutrophils Absolute Auto 26900 /uL (1500-7000); Platelet Count 175 X10^3/uL (150-400); Red Blood Cell Count 3.74 X10^6/uL (4.0-5.2); Red Cell Distribution Width 13.1 % (11.6-14.8); White Blood Cell Count 29.9 X10^3/uL (4.5-11.0)
--- NOTE | 2021-07-20 06:55 | P.PNOB_ITS ---
Subjective - OB Subjective Patient comments: incisional pain baby status: doing well and nursing well [place] feeding status: exclusively breast feeding Date Patient Seen: 07/20/21 Time Patient Seen: 06:55 Interval history: Patient denies headaches, scotomata, epigastric pain. No nausea. She complains of incisional pain. She finally had a successful . Exam Vital Signs (past 8 hours): - Blood pressure 134/84, pulse of 80, temperature 36.4? 07/20/21 02:12 Temperature 98.9 F Oxygen Delivery Method Room Air Narrative Exam Narrative: Abdomen is soft, nontender. Uterus is firm, up just above umbilicus, appropriately tender. Dressing is dry. Mild lochia. Extremities without edema and nontender. Objective Labs Result Diagrams: 07/20/21 06:31 Labs: Laboratory Results - last 24 hr 07/20/21 06:31 WBC 29.9 H D RBC 3.74 L Hgb 11.8 L Hct 34.3 L MCV 91.6 MCH 31.4 MCHC 34.3 RDW 13.1 Plt Count 175 Neut % (Auto) 89.0 H Lymph % (Auto) 4.3 L [place] % (Auto) 6.5 Eos % (Auto) 0.0 L Baso % (Auto) 0.2 Neut # (Auto) 27333 H Lymph # (Auto) 1300 [place] # (Auto) 2000 H Eos # (Auto) 0 Baso # (Auto) 100 Assessment & Plan Plan day: 1 plan OB: routine postop care Time Spent With Patient Time: Total time spent is greater than 50% in coordination of care (as documented) at patient's floor/unit and/or counseling patient: Time with patient: less than 15 minutes
[2021-07-20] MEDS: ACETAMINOPHEN 325 MG TABLET 650 MG PO ×3 (08:32→23:10)
[2021-07-20] MEDS: OXYCODONE IR 5 MG TABLET PO ×3 (08:32→23:10)
[2021-07-20] MEDS: IBUPROFEN 600 MG TABLET PO ×3 (08:33→23:10)
[2021-07-20] MEDS: DOCUSATE 100 MG CAPSULE 200 MG PO (08:36)
[2021-07-21] MEDS: OXYCODONE IR 5 MG TABLET PO ×2 (04:38→12:37)
[2021-07-21] MEDS: IBUPROFEN 600 MG TABLET PO ×2 (06:33→12:37)
[2021-07-21] MEDS: ACETAMINOPHEN 325 MG TABLET 650 MG PO ×2 (06:34→12:36)
--- NOTE | 2021-07-21 07:45 | P.DS_ITS ---
Discharge Providers Provider Date of admission: 07/18/21 22:15 Discharge Date: 07/21/21 Consults: 07/18/21 23:18 Consult to Anesthesiology Urgent Comment: Consulting Provider: Anesthesiologist Reason for consultation: Epidural Has provider been notified: No 07/19/21 21:15 Consult to Engineer Systems Routine Comment: Discharge provider: Vale Catalan MD Summary Hospital Course Date Patient Seen: 07/21/21 Time Patient Seen: 07:46 Diagnoses: Term with premature rupture membranes, 1st stage arrest, primary low- transverse section Hospital Course: Patient arrived on Labor and delivery with spontaneous rupture membranes. She was not in active labor so Pitocin was begun. She received an epidural catheter for pain control. She had 1st stage arrest and underwent a primary low- transverse section. Probable early endometritis with fever at time of section. Patient was given IV antibiotics for 24 hours. She has remained afebrile. She is passing gas. Urinating and ambulating well. Pain is under control. She is breast-feeding without difficulty. Peripartum Data Delivery Method: Section complications: none [place] 1: Gender: Male Disposition of : home Discharge Diagnosis (1) Delivery by section of full-term infant: Status: Acute (2) Endometritis: Status: Acute Status at Discharge Cognitive/behavioral status at discharge: oriented Functional status at discharge: independent ambulation Overall status at discharge: patient is progressing back to baseline Time Spent with Patient Time attestation: Total time spent providing and/or coordinating discharge services: Time spent: Less than 30 minutes Objective Labs Result Diagrams: 07/20/21 06:31 Exam Vital Signs (past 8 hours): Blood pressure 129/74, pulse of 88, temperature 98? Oxygen Delivery Method Room Air Narrative Exam Narrative: Patient's abdomen is soft, nontender. Uterus is firm, at U, nontender. Dressing is clean, dry, intact. Mild lochia. Extremities without edema and n ontender. Patient's blood type is O positive, she is rubella immune, she received Tdap in the 3rd trimester. Discharge Plan Discharge Plan Patient Disposition: Home Discharge orders & Medications Prescriptions: New oxycodone-acetaminophen 5-325 mg Tablet 1 tab PO Q4HR PRN (Reason: Pain, Moderate (4-6)) Qty: 30 0RF docusate sodium 100 mg Capsule 200 mg PO DAILY Qty: 30 0RF ibuprofen 600 mg Tablet 600 mg PO Q6H PRN (Reason: Fever/Mild Pain (1-3)) Qty: 30 0RF Continued prenat.vits,kristin,yne-mtko-lfsca Tablet 1 tab PO DAILY 0RF Follow up/Referrals: Vale Catalan MD [Physician] - 1 Week (aquacel removal) Diet/Activity/Treatments Diet: Regular Activity: nothing in vagina or lifting over 20 lb for 6 weeks Skin/Wound/Dressing Care Report to your healthcare provider any signs of infection, such as:: chills, fever, increased pain and unusual redness Dressing: Leave dressing on until 1 week postop visit
[2021-07-21 12:36] VITALS: TEMP 36.7
[2021-07-21 12:37] VITALS: TEMP 36.7
[2021-07-21] MEDS: DOCUSATE 100 MG CAPSULE 200 MG PO (12:38)
[2021-07-21 18:16] VITALS: BP 120/73; PULSE 84; RESP 16; TEMP 36.7
== END 2021-07-21 13:30 | disposition home or self-care (01) | DRG 786 ==
PROVIDERS: Admitting Provider Specialist; Referring Provider Specialist; Visit Provider Specialist
PROC: 10D00Z1 Extraction of Products of Conception, Low, Open Approach (ICD-10-PCS; CPT 59514; principal; 2021-07-19 19:00)
DX: O62.1 Secondary uterine inertia (principal); O75.3 Other infection during labor; Z3A.40 40 weeks gestation of pregnancy; Z37.0 Single live birth; Z20.822 Contact with and (suspected) exposure to COVID-19
CPT/HCPCS: 01967; 01968; 36415; 59050; 59510; 84112; 85025; 86850; 86900; 86901; 87635; C9803; G0379; J0690; J1100; J1885; J2210; J2274; J2405; J2590; J2765; J3010; S0191

== ENCOUNTER 2022-09-13 09:29 | Emergency (ER) | payer OTHER, SELFPAY ==
[2022-09-13 09:30] VITALS: BP 142/93; PULSE 86; RESP 15; TEMP 36.9; O2SAT 96; BMI 23.4
[2022-09-13 10:42] LABS: Influenza A - CEPHEID Flu A NEGATIVE (NEGATIVE); Influenza B - CEPHEID Flu B NEGATIVE (NEGATIVE); Respiratory Syncytial Virus Negative (Negative)
[2022-09-13 10:50] LABS: COVID-19 CEPHEID 4-PLEX PCR Negative (Negative)
--- NOTE | 2022-09-14 07:34 | ED.URI ---
HPI - URI/Sore Throat General Chief Complaint: Upper Respiratory Symptoms Stated Complaint: sore throat Time Seen by Provider: 09/13/22 09:48 Source: patient Mode of arrival: Ambulatory History of Present Illness HPI Narrative: 27-year-old female presenting with upper respiratory infection type symptoms and sore throat. Patient noted symptoms starting over the last 2-3 days, associated sick contacts with the patient's son who is an infant. No measured fevers. Patient continues to tolerate oral intake without difficulty, no drooling, no difficulty opening the mouth. No productive cough. Patient has had upper airway congestion. Related Data Home Medications Medication Instructions Recorded Confirmed prenat.vits,kristin,tra-mxjb-kqdvc 1 tab PO DAILY 12/02/20 08/31/21 Previous Rx's Medication Instructions Recorded norethindrone acetate 1.5 1 tab PO DAILY #63 tabs 03/08/22 mg-ethinyl estradiol 30 mcg tablet (Junel) Allergies Allergy/AdvReac Type Severity Reaction Status Date / Time No Known Drug Allergies Allergy Verified 09/13/22 09:39 Patient History Medical History Cervical Papanicolaou smear negative within last 12 months (~11/19/19) Delivery by section of full-term (~07/19/21) HSIL (high grade squamous intraepithelial lesion) on Pap smear of cervix (~07/13/16) LGSIL (low grade squamous intraepithelial dysplasia) (~02/14/18) Patient denies medical problems Tonsillitis Surgical History [place] teeth extracted (~2015) Family History Mother No problems noted. Father Family estrangement Grandmother Hypertension Diabetes mellitus Grandfather Old age Grandmother Family estrangement Unknown whether patient has any health problems Grandfather Unknown whether patient has any health problems Family estrangement Brother No problems noted. 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 Nursing note reviewed Constitutional: interactive HENT: Moist mucous membranes, no posterior oropharyngeal swelling or lesions noted, no significant exudate, no trismus EYES: No scleral icterus NECK: no masses CV: Well perfused peripherally, no cyanosis present PULM: Unlabored respirations, symmetric chest rise ABD: Non-distended MS: No gross deformities, no asymmetric edema noted SKIN: Warm and dry. PSYCH: Appropriate affect NEURO: Follows simple commands, moves extremities, interactive with exam Initial Vital Signs Initial Vital Signs: Vital Signs Temperature 98.4 F 09/13/22 09:30 Pulse Rate 86 09/13/22 09:30 Respiratory Rate 15 09/13/22 09:30 Blood Pressure 142/93 H 09/13/22 09:30 Pulse Oximetry 96 09/13/22 09:30 Oxygen Delivery Method 09/13/22 09:30 MDM - URI/Sore Throat Lab Data Labs: Lab Results 09/13/22 Range/Units 09:38 SARS-CoV-2 (PCR) Negative (Negative) Influenza A (RT-PCR) Flu a negative (NEGATIVE) Influenza B (RT-PCR) Flu b negative (NEGATIVE) RSV (PCR) Negative (Negative) MDM Narrative Medical decision making narrative: 27-year-old female presenting with upper respiratory type symptoms. On presentation, vital signs notable for mild hypertension otherwise reassuring. Physical exam notable for well-appearing 27-year-old female in no acute distress, reassuring cardiopulmonary exam, benign abdomen. Initial concern for viral syndrome versus focal bacterial infection, occult sepsis. Patient is well-appearing on bedside exam, no evidence of dehydration, patient continues to tolerate oral intake without difficulty. Patient without focal pulmonary findings on bedside exam to suggest focal bacterial pneumonia. Patient's vital signs are uric acids occult sepsis. Discussed probability of nonspecific viral syndrome, viral swab was ordered and pending. Discussed plan for conservative outpatient management follow up. Patient agreeable to this plan and subsequently discharged in stable condition. Return precautions discussed. Discharge Plan Departure Patient Disposition: Home Clinical Impression: Upper respiratory infection Instructions: DI for Viral Upper Respiratory Infection -- Adult Prescriptions: No Action norethindrone ac-eth estradiol [ (21)] 1.5-30 mg-mcg tablet 1 tab PO DAILY Qty: 63 3RF prenat.vits,kristin,aax-lexs-tqpxi Tablet 1 tab PO DAILY Referrals: Miscellaneous,Doctor, MD [Primary Care Provider] - Stand Alone Forms: Patient Portal/API
== END 2022-09-13 09:54 | disposition home or self-care (01) ==
PROVIDERS: Emergency Provider Emergency Medicine
DX: J06.9 Acute upper respiratory infection, unspecified (principal); Z20.822 Contact with and (suspected) exposure to COVID-19
CPT/HCPCS: 0241U; 99281; 99282

== ENCOUNTER → 2023-06-05 12:22 | Outpatient (CLI) | payer OTHER, SELFPAY ==
[2023-06-05 14:57] LABS: HCG Quantitative /Beta subunit 5996.7 mIU/mL
== END ==
PROVIDERS: Referring Provider Obstetrics & Gynecology; Visit Provider Obstetrics & Gynecology
DX: O20.9 Hemorrhage in early pregnancy, unspecified (principal)
CPT/HCPCS: 36415; 84702

== ENCOUNTER 2023-06-06 11:21 | Emergency (ER) | payer OTHER, SELFPAY ==
[2023-06-06 11:24] VITALS: BP 110/70; PULSE 72; RESP 18; TEMP 37.2; O2SAT 99; BMI 23.4
--- NOTE | 2023-06-06 11:32 | DI.US.S_ITS ---
PROCEDURE: US PELVIC COMPLETE INDICATIONS: URINE POSITIVE TEST. 5 DAYS BLEEDING. TECHNIQUE: Real-time scanning was performed of the pelvic organs, with image documentation. Additional endovaginal scanning was necessary due to incomplete visualization of the adnexal and endometrial structures by transabdominal scanning. COMPARISON: None. FINDINGS: Uterus: Uterus is anteverted and normal in size at 8.8 x 5.9 x 4.6 cm. The myometrium is homogeneous. The endometrium measures 18.5 mm combined thickness. Endometrium is thickened and heterogeneous with normal vascularity. No evidence of intrauterine . Ovaries: The right ovary measures 3.2 x 1.7 x 1.5 cm, with a calculated ovarian volume of 4.3 cc. The left ovary measures 2.8 x 1.9 x 1.9 cm, with a calculated ovarian volume of 5.2 cc. Probable left ovarian corpus luteal cyst measuring 1.3 cm. The ovaries have a normal sonographic appearance. Less than 12 follicles can be seen in each ovary. No adnexal masses are seen. Other: No pathologic free abdominal or pelvic fluid. IMPRESSION: 1. The endometrial echo complex is thickened and heterogeneous without evidence of intrauterine . Findings may represent spontaneous . Recommend beta HCG trend and follow-up ultrasound as clinically indicated to exclude ectopic . 2. Possible left ovarian corpus luteal cyst. The ovaries are otherwise normal in appearance. We strive to produce accurate, complete, and clear reports of imaging services. To assist us in improving patient care, this report was composed using standard report templates and voice recognition software. Therefore, it may contain abnormal punctuation, insertions and/or omissions. Occasional wrong-word or sound-alike substitutions may occur. Though we review the report and make efforts to correct it, we do recommend that the report be read carefully in proper context to recognize any text inaccuracies. Dictated by: Boy Gutierrez M.D. on 06/06/2023 at 13:02 Approved by: Boy Gutierrez M.D. on 06/06/2023 at 13:04
[2023-06-06 11:56] LABS: Add Manual Diff / Slide Review NO; Basophils Absolute Auto 0 /uL (0-100); Basophils Percent Auto 0.4 % (0-2); Eosinophils Absolute Auto 400 /uL (0-450); Eosinophils Percent Auto 3.5 % (2-4); Hematocrit 42.8 % (36-46); Hemoglobin 14.3 g/dL (12.0-16.0); Lymphocytes Absolute Auto 2000 /uL (1100-4500); Lymphocytes Percent Auto 17.4 % (25-40); Mean Corpuscular HGB Conc 33.4 % (30-36); Mean Corpuscular Hemoglobin 31.3 PG (26-34); Mean Corpuscular Volume 93.8 fL (80-100); Monocytes Absolute Auto 1000 /uL (0-900); Monocytes Percent Auto 8.3 % (3-14); Neutrophils Absolute Auto 8200 /uL (1500-7000); Neutrophils Percent Auto 70.4 % (50-75); Platelet Count 327 X10^3/uL (150-400); Red Blood Cell Count 4.56 X10^6/uL (4.0-5.2); Red Cell Distribution Width 12.2 % (11.6-14.8); White Blood Cell Count 11.7 X10^3/uL (4.5-11.0)
[2023-06-06 12:16] LABS: Alanine Aminotransferase 12 IU/L (<35); Albumin Globulin Ratio 1.5 (1.0-2.8); Alkaline Phosphatase 60 U/L (38-126); Aspartate Aminotransferase 32 IU/L (14-36); Bilirubin Total 0.8 mg/dL (0.2-1.3); Blood Urea Nitrogen 14 mg/dL (7-17); Calcium 9.7 mg/dL (8.4-10.2); Carbon Dioxide 28 mmol/L (22-32); Chloride 101 mmol/L (98-107); Estimated Glomerular Filt Rate > 60 mL/min (>60); Globulin 3.4 g/dL (1.7-4.1); Glucose 93 mg/dL (70-100); HEMOLYSIS 22 (0-50); Potassium 3.7 mmol/L (3.4-5.1); Sodium 137 mmol/L (137-145); Total Protein 8.4 g/dL (6.3-8.2)
[2023-06-06 12:32] LABS: HCG Quantitative /Beta subunit 5766.2 mIU/mL
[2023-06-06 12:39] VITALS: PULSE 76; O2SAT 98
[2023-06-06 12:40] VITALS: BP 119/68; PULSE 69; O2SAT 99
[2023-06-06 13:00] VITALS: BP 104/68; PULSE 66; O2SAT 97
[2023-06-06 13:02] LABS: Bacteria Urine None Seen; RBC Urine 30-100/HPF (0-5/HPF); Squamous Epithelial Cell Urine 0-1 /HPF (0-5/HPF); WBC Urine 0-1/HPF (0-5/HPF)
[2023-06-06 13:03] LABS: Culture Indicated Urine Cult Not Indicated
--- NOTE | 2023-06-06 13:09 | ED.PREGNANCY ---
HPI - General Chief complaint: Vaginal Bleeding Stated complaint: bleeding Time Seen by Provider: 06/06/23 11:34 Source: patient Mode of arrival: Ambulatory Limitations: no limitations History of Present Illness HPI Narrative: at approximately 9 weeks' gestation per last menstrual period presents by private vehicle for 5 days of vaginal bleeding. It started office 2 days of light spotting followed by 3 days of heavy bleeding. No confirmed intrauterine just yet. Blood type O positive. Related Data Home Medications Medication Instructions Recorded Confirmed prenat.vits,kristin,[id number] 1 tab PO DAILY 12/02/20 08/31/21 Allergies Allergy/AdvReac Type Severity Reaction Status Date / Time No Known Drug Allergies Allergy Verified 06/01/23 14:32 Review of Systems Review of Systems Narrative: Negative except as noted above Exam Initial Vital Signs Initial Vital Signs: Vital Signs Temperature 98.9 F 06/06/23 11:24 Pulse Rate 72 06/06/23 11:24 Respiratory Rate 18 06/06/23 11:24 Blood Pressure 110/70 06/06/23 11:24 Pulse Oximetry 99 06/06/23 11:24 Oxygen Delivery Method Room Air 06/06/23 11:24 Const: Awake, alert, no acute distress, nontoxic appearing Eyes: PERRL, EOMI, conjunctiva normal ENT: Atraumatic, dentition normal, mucous membranes moist Cardiac: regular rate, regular rhythm RESP: unlabored, clear bilaterally, no wheezing GI: Atraumatic, soft, nontender, nondistended, no rebound, no guarding MSK: Atraumatic, full range of motion, pulses equal Skin: Warm, Dry, intact, no rashes Neuro: AO x3, CN II-XII grossly intact, moves all extremities Psych: affect normal, mood normal, not suicidal, not homicidal Course Course Course Narrative: Vaginal bleeding in 1st trimester , no confirmed IUP. HCG quant 4996.7 yesterday at 1:00 p.m. labs and imaging ordered. Orders Ordered: ED Orders 06/06/23 11:32 US pelvic complete Stat 06/06/23 11:47 Complete Blood Count AUTO DIFF Stat Comprehensive Metabolic Panel Stat HCG Quantitative /Beta subunit Stat Type and Screen Stat 06/06/23 12:25 Urine Microscopic Stat Reevaluation(s) Reevaluation #1: Laboratory work is significant for hCG quant 5766.2, hemoglobin 14.3. Imaging significant for thickened endometrial stripe without intrauterine seen. Given the downtrending hCG quant and negative uterus this is highly concerning for spontaneous . Patient informed of lab and imaging results. I recommended close OBGYN follow up to ensure that hCG continues to downtrend. Vital Signs Vital signs: Vital Signs - 8 hr 06/06/23 11:24 06/06/23 12:39 06/06/23 12:40 Temperature 98.9 F Pulse Rate 72 76 Respiratory Rate 18 Blood Pressure 110/70 119/68 Pulse Oximetry 99 98 Oxygen Delivery Method Room Air 06/06/23 12:40 06/06/23 13:00 06/06/23 13:00 Temperature Pulse Rate 69 66 Respiratory Rate Blood Pressure 104/68 Pulse Oximetry 99 97 Oxygen Delivery Method MDM - OB/Uterine Contractions Lab Data 06/06/23 11:47 06/06/23 11:47 Labs: Lab Results 06/06/23 06/06/23 Range/Units 11:47 12:25 WBC 11.7 H (4.5-11.0) X10^3/uL RBC 4.56 (4.0-5.2) X10^6/uL Hgb 14.3 (12.0-16.0) g/dL Hct 42.8 (36-46) % MCV 93.8 (80-100) fL MCH 31.3 (26-34) PG MCHC 33.4 (30-36) % RDW 12.2 (11.6-14.8) % Plt Count 327 (150-400) X10^3/uL Neut % (Auto) 70.4 (50-75) % Lymph % (Auto) 17.4 L (25-40) % [place] % (Auto) 8.3 (3-14) % Eos % (Auto) 3.5 (2-4) % Baso % (Auto) 0.4 (0-2) % Neut # (Auto) 8200 H (2339-0549) /uL Lymph # (Auto) 2000 (2755-6017) /uL [place] # (Auto) 1000 H (0-900) /uL Eos # (Auto) 400 (0-450) /uL Baso # (Auto) 0 (0-100) /uL Sodium 137 (137-145) mmol/L Potassium 3.7 (3.4-5.1) mmol/L Chloride 101 (98-107) mmol/L Carbon Dioxide 28 (22-32) mmol/L BUN 14 (7-17) mg/dL Creatinine 0.56 (0.52-1.04) mg/dL Estimated GFR > 60 (>60) mL/min BUN/Creatinine Ratio 25.0 H (6-22) Glucose 93 (70-100) mg/dL Calcium 9.7 (8.4-10.2) mg/dL Total Bilirubin 0.8 (0.2-1.3) mg/dL AST 32 (14-36) IU/L ALT 12 (<35) IU/L Alkaline Phosphatase 60 (38-126) U/L Total Protein 8.4 H (6.3-8.2) g/dL Albumin 5.0 (3.5-5.0) g/dL Globulin 3.4 (1.7-4.1) g/dL Albumin/Globulin Ratio 1.5 (1.0-2.8) HCG, Quant 5766.2 mIU/mL Urine RBC 30-100/hpf H (0-5/HPF) Urine WBC 0-1/hpf (0-5/HPF) Ur Squamous Epith Cells 0-1 /hpf (0-5/HPF) Urine Bacteria None seen (None) Ur Culture Indicated? Cult not indicated Blood Type O Positive Antibody Screen Negative Urine Dip Bedside Urine Glucose Negative Bedside Urine Bilirubin - Negative Bedside Urine Ketone - Negative Urine Specific [place] 1.025 Bedside Urine Occult Blood +++ Bedside Urine pH 6.0 Bedside Urine Protein - Negative Bedside Urine Urobilinogen - Negative Bedside Urine Nitrite - Negative Bedside Urine Leukocytes - Negative Esterase Discharge Plan Departure Patient Disposition: Home Clinical Impression: Miscarriage at 8 to 28 weeks gestation Instructions: DI for Miscarriage Activity Restrictions/Additional Instructions: FOLLOW UP WITH YOUR OBGYN TO ENSURE THAT YOUR HCG LEVELS RETURN TO NORMAL Prescriptions: No Action prenat.vits,kristin,[id number] Tablet 1 tab PO DAILY Referrals: ProviderAndrew [Primary Care Provider] - Stand Alone Forms: Patient Portal/API
--- NOTE | 2023-06-06 13:14 | PC.NURSE ---
Pt complains of 8/10 lower abdominal cramping. Pt denies wanting any pain medications
== END 2023-06-06 13:24 | disposition home or self-care (01) ==
PROVIDERS: Emergency Provider Emergency Medicine
DX: O03.9 Complete or unspecified spontaneous abortion without complication (principal)
CPT/HCPCS: 76830; 76856; 80053; 81003; 81015; 84702; 85025; 86850; 86900; 86901; 99283; 99284

== ENCOUNTER → 2023-06-08 14:04 | Outpatient (CLI) | payer OTHER, SELFPAY ==
[2023-06-08 15:59] LABS: HCG Quantitative /Beta subunit 584.8 mIU/mL
== END ==
PROVIDERS: Referring Provider Obstetrics & Gynecology; Visit Provider Obstetrics & Gynecology
DX: O20.9 Hemorrhage in early pregnancy, unspecified (principal)
CPT/HCPCS: 36415; 84702

== ENCOUNTER 2023-10-05 13:48 | Emergency (ER) | payer OTHER, SELFPAY ==
[2023-10-05 13:59] VITALS: BP 135/76; PULSE 75; RESP 18; TEMP 36.7; O2SAT 100; BMI 25.4
[2023-10-05 15:19] VITALS: BP 134/70; PULSE 71; RESP 18; O2SAT 100
--- NOTE | 2023-10-05 15:20 | ED_ITS ---
<Statement entered by Jimmie Gleason MD - 10/05/23 18:50> I was immediately available in the department for consultation. Documentation has been reviewed. I agree with assessment and plan. HPI - Skin/Abscess/Foreign Bdy General Chief complaint: Skin/Abscess/Foreign Body Stated complaint: rt arm rash Time Seen by Provider: 10/05/23 15:01 Source: patient Mode of arrival: Ambulatory Limitations: no limitations History of Present Illness HPI narrative: 28-year-old female presents to the ED with 2-3 weeks of right arm rash that started after a accidental exposure to paint promoter. Patient complains of the rash being itchy and painful and has been spreading from her right wrist up to mid bicep. Patient brings safety data sheet with her. SDS states that exposure to the skin could cause a dry, itchy rash. Patient denies any other symptoms including fever, chills, lip swelling, tongue swelling, shortness of breath, chest pain, cough. Related Data Home Medications Medication Instructions Recorded Confirmed prenat.vits,kristin,[id number] 1 tab PO DAILY 12/02/20 06/27/23 Previous Rx's Medication Instructions Recorded methylprednisolone 4 mg tablets in See Rx Instructions PO .COMPLEX 10/05/23 a dose pack (Medrol (Benson)) #21 ea triamcinolone acetonide 0.05 % 1 applic topical TID #110 grams 10/05/23 topical ointment Allergies Allergy/AdvReac Type Severity Reaction Status Date / Time No Known Drug Allergies Allergy Verified 06/27/23 14:35 Review of Systems Constitutional Constitutional: Denies chills, Denies fatigue, Denies fever(s), Denies frequent falls, Denies lethargy and Denies weakness Eyes Eyes: Denies change in vision, Denies eye discharge, Denies irritation and Denies loss of vision ENT Ears, Nose, Mouth, and Throat: Denies change in voice, Denies dizziness, Denies neck pain, Denies sore throat and Denies throat swelling Cardiovascular Cardiovascular: Denies chest pain, Denies irregular heart rhythm, Denies lightheadedness, Denies palpitations, Denies dyspnea, Denies dyspnea on exertion and Denies orthopnea Respiratory Respiratory: Denies cough, Denies dyspnea, Denies dyspnea on exertion and Denies wheezing Gastrointestinal Gastrointestinal: Denies abdominal pain, Denies change in bowel habits, Denies diarrhea, Denies nausea and Denies vomiting Musculoskeletal Musculoskeletal: Denies neck pain and Denies numbness Integumentary/Breasts Skin/Breast: Denies pruritus, Denies erythema, Reports rash and Denies wounds Neurologic Neurologic: Denies behavioral changes, Denies confusion, Denies dizziness, Denies frequent falls, Denies loss of vision, Denies numbness and Denies weakness Psychiatric Psychiatric: Denies anxiety, Denies behavioral changes, Denies confusion, Denies depression, Denies homicidal ideation and Denies suicidal ideation Endocrine Endocrine: Denies fatigue, Denies flushing and Denies palpitations Hematologic/Lymphatic Hematologic/Lymphatic: Denies easy bruising Allergic/Immunologic Allergic/Immunologic: Denies urticaria, Denies throat swelling and Denies wheezing Patient History Medical History Delivery by section of full-term (~07/19/21) Cervical Papanicolaou smear negative within last 12 months (~11/19/19) LGSIL (low grade squamous intraepithelial dysplasia) (~02/14/18) HSIL (high grade squamous intraepithelial lesion) on Pap smear of cervix (~07/13/16) Tonsillitis Surgical History Previous section (~2020) [place] teeth extracted (~2015) Family History Father Family estrangement Grandmother Hypertension Diabetes mellitus Grandfather Old age Brother Depression Social History marital status: number of children: 1 household members: spouse and children lives independently: Yes caregiver/support person: Yes housing: house pets and animals: No education level: college (bachelor's degree) occupational status: employed (active duty [employer]) current occupational exposures/hazards: No (Not since learning of ) 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: Episcopalian special deven needs: No travel history: recent (domestic only) seatbelt use: always water heater temp set < 120 deg: Yes working smoke detector in home: Yes fire extinguisher in home: Yes carbon monox detector in home: Yes firearms in home: Yes firearms unloaded and locked: Yes do you feel safe at home: Yes Smoking Status: Never smoker second hand exposure: No alcohol intake: former (~1/week when not ) substance use type: does not use during the past year weight has: remained stable well-balanced diet: daily or most days daily servings fruits/ve-4 caffeine: Yes Type(s) of exercise: walking and running Smoking Status: Never smoker alcohol intake frequency: holidays/special occasions only Substance Use Type: does not use Exam Narrative Exam Narrative: Const General:?cooperative, healthy appearing and comfortable [facility] Head:?normal to inspection Ears:?hearing grossly normal bilaterally Nose:?external nose normal Face and sinus:?normal facial exam and sinuses nontender Mouth:?oral mucosae normal Throat:?posterior oropharynx normal Eyes General:?appearance normal, both eyes and all related structures Neck Neck:?normal visual inspection and no lymphadenopathy noted Resp Effort & Inspection:?normal respiratory effort Auscultation:?clear to auscultation bilaterally Cardio Rate:?regular rate Rhythm:?regular rhythm Integumentary Discrete, erythematous, pinpoint, dry rash noted on right arm between the wrist and mid bicep. No overlying bacterial infection. Neuro General:?patient alert, patient awake and patient oriented x3 Initial Vital Signs Initial Vital Signs: Vital Signs Temperature 98.1 F 10/05/23 13:59 Pulse Rate 75 10/05/23 13:59 Respiratory Rate 18 10/05/23 13:59 Blood Pressure 135/76 10/05/23 13:59 Pulse Oximetry 100 10/05/23 13:59 Oxygen Delivery Method Room Air 10/05/23 13:59 Course Vital Signs Vital signs: Vital Signs - 8 hr 10/05/23 13:59 10/05/23 15:19 Temperature 98.1 F Pulse Rate 75 71 Respiratory Rate 18 18 Blood Pressure 135/76 134/70 Pulse Oximetry 100 100 Oxygen Delivery Method Room Air Room Air MDM - Skin/Abscess/Foreign Bdy MDM Narrative Medical decision making narrative: 28-year-old female presents to the ED with 2-3 weeks of right arm rash that started after a accidental exposure to paint promoter. Concern for allergic contact dermatitis. Prescribed steroid ointment, prednisone. Recommend follow- up with PCP as soon as possible. ED return precautions discussed with patient. Patient verbalized understanding. Medical records reviewed: Yes Discharge Plan Departure Patient Disposition: Home Clinical Impression: Rash Instructions: DI for Rash Activity Restrictions/Additional Instructions: You were evaluated in the ED today for a rash from an allergic reaction to paint promoter. You are being prescribed a steroid ointment that you can apply topically and also a dose of prednisone. Please take the medications as prescribed. Please follow-up with your PCP as soon as possible. Return to the ED if you have worsening symptoms, tongue swelling, lip swelling, trouble breathing, chest pain. Prescriptions: New methylprednisolone [Medrol (Benson)] 4 mg tablets,dose pack See Rx Instructions .ROUTE .COMPLEX Qty: 21 0RF Rx Instructions: orally per package directions triamcinolone acetonide 0.05 % ointment 1 applic topical TID Qty: 110 0RF No Action prenat.vits,kristin,[id number] Tablet 1 tab PO DAILY Referrals: ProviderAndrew [Primary Care Provider] - Stand Alone Forms: Patient Portal/API
== END 2023-10-05 15:19 | disposition home or self-care (01) ==
PROVIDERS: Emergency Provider Student in an Organized Health Care Education/Training Program
DX: R21 Rash and other nonspecific skin eruption (principal)
CPT/HCPCS: 99281

== ENCOUNTER 2024-07-27 12:07 | Emergency (ER) | payer OTHER, SELFPAY ==
[2024-07-27 12:14] VITALS: BP 137/86; PULSE 82; RESP 18; TEMP 36.6; O2SAT 97; BMI 25.4
--- NOTE | 2024-07-27 12:35 | ED_ITS ---
HPI - Skin/Abscess/Foreign Bdy General Chief complaint: Skin/Abscess/Foreign Body Stated complaint: Severe Rash Private Area Time Seen by Provider: 07/27/24 12:11 Source: patient Mode of arrival: Ambulatory Limitations: no limitations History of Present Illness HPI narrative: Ms. Mendoza is a very pleasant 29-year-old female with no reported past medical history that is currently 3 weeks vaginal delivery who presents to the emergency department for an itchy red rash in her groin x1 week. Patient states she has been using menstrual pads for her bleeding and she noticed about 1 week ago she noticed a rash on her behind where the pad and was however this rash has since spread to her vagina and inner thighs. States that the rash is red and very itchy. Symptoms improve temporarily with hydrocortisone spray but then itching returns. She denies abdominal pain, nausea, vomiting, fevers, chills, dysuria. She is . Related Data Home Medications Medication Instructions Recorded Confirmed prenat.vits,kristin,[id number] 1 tab PO DAILY 12/02/20 06/27/23 Previous Rx's Medication Instructions Recorded methylprednisolone 4 mg tablets in See Rx Instructions PO .COMPLEX 10/05/23 a dose pack (Medrol (Benson)) #21 ea triamcinolone acetonide 0.05 % 1 applic topical TID #110 grams 10/05/23 topical ointment clotrimazole 1 % topical cream 1 applic topical BID 2 weeks #30 07/27/24 grams loratadine 10 mg tablet 10 mg PO DAILY #7 tabs 07/27/24 Allergies Allergy/AdvReac Type Severity Reaction Status Date / Time No Known Drug Allergies Allergy Verified 06/27/23 14:35 Review of Systems Review of Systems ROS Unobtainable: All systems reviewed & are unremarkable except as noted in HPI and below Patient History Medical History Delivery by section of full-term infant (~07/19/21) Cervical Papanicolaou smear negative within last 12 months (~11/19/19) LGSIL (low grade squamous intraepithelial dysplasia) (~02/14/18) HSIL (high grade squamous intraepithelial lesion) on Pap smear of cervix (~07/13/16) Tonsillitis Surgical History Previous section (~2020) [place] teeth extracted (~2015) Family History Father Family estrangement Grandmother Hypertension Diabetes mellitus Grandfather Old age Brother Depression Social History marital status: number of children: 1 household members: spouse and children lives independently: Yes caregiver/support person: Yes housing: house pets and animals: No education level: college (bachelor's degree) occupational status: employed (active duty [employer]) current occupational exposures/hazards: No (Not since learning of ) 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 deven/mormonism: Jew special deven needs: No travel history: recent (domestic only) seatbelt use: always water heater temp set < 120 deg: Yes working smoke detector in home: Yes fire extinguisher in home: Yes carbon monox detector in home: Yes firearms in home: Yes firearms unloaded and locked: Yes do you feel safe at home: Yes Smoking Status: Never smoker second hand exposure: No alcohol intake: former (~1/week when not ) substance use type: does not use during the past year weight has: remained stable well-balanced diet: daily or most days daily servings fruits/ve-4 caffeine: Yes Type(s) of exercise: walking and running Smoking Status: Never smoker alcohol intake frequency: holidays/special occasions only Exam Narrative Exam Narrative: GENERAL: 29 year old patient appears stated age. Well-developed patient, in no acute distress. CARDIOVASCULAR: Regular rate RESPIRATORY: ?Nonlabored respirations. ?Speaking in clear, full sentences. GASTROINTESTINAL: Abdomen soft, non-tender, nondistended. : Patient gave verbal consent for external pelvic exam. Female nurse raw hide trimmer present. Patient has normal external genitalia. She does have a mild erythematous rash on bilateral glutes spreading slightly into the thigh folds. EXTREMITIES: No edema or joint tenderness. NEURO: AOx3. ?Clear speech. ?Moves all 4 extremities appropriately. SKIN: Mild erythematous rash described above. Initial Vital Signs Initial Vital Signs: Vital Signs Temperature 97.8 F 07/27/24 12:14 Pulse Rate 82 07/27/24 12:14 Respiratory Rate 18 07/27/24 12:14 Blood Pressure 137/86 07/27/24 12:14 Pulse Oximetry 97 07/27/24 12:14 Oxygen Delivery Method Room Air 07/27/24 12:14 Course Vital Signs Vital signs: Vital Signs - 8 hr 07/27/24 12:14 Temperature 97.8 F Pulse Rate 82 Respiratory Rate 18 Blood Pressure 137/86 Pulse Oximetry 97 Oxygen Delivery Method Room Air MDM - Skin/Abscess/Foreign Bdy MDM Narrative Medical decision making narrative: 29-year-old female with no reported past medical history that is currently 3 weeks vaginal delivery who presents to the emergency department for an itchy red rash in her groin x1 week. Differential diagnosis includes but is not limited to intertrigo, cellulitis, dermatitis, etc. On exam patient is in no acute distress, nontoxic-appearing, all vital signs within normal limits. External exam reveals mild erythematous rash on glutes and folds of thighs likely from menstrual pads. Possible early intertrigo. She has been trying hydrocortisone without complete resolution so we will switch to clotrimazole and also oral loratadine for itching. Recommended if she needs to use pads to change in very frequently and avoid sitting in wet menstrual pad for prolonged time. Recommended follow up with OBGYN. Discussed signs and symptoms to return to the ER for. Patient verbalized understanding of all information is stable for discharge home. Discharge Plan Departure Patient Disposition: Home Clinical Impression: Groin rash Instructions: DI for Intertrigo Activity Restrictions/Additional Instructions: Today you were evaluated for an itchy rash in your groin. It appears to be contact irritation likely for menstrual pads. Since your symptoms have not resolved with hydrocortisone, I have prescribed you a fungal cream to use twice a day until symptoms resolve. I have also prescribed an oral allergy pill to help with the itching. Please follow up with your OBGYN for repeat evaluation. Return to the ER if you develop burning during urination, abnormal vaginal discharge, redness spreading down the legs, fevers, chills, any other concerns. Please follow up with your primary care doctor within the next 2-3 days for ER follow-up. (If you do not have a PCP you can call [phone]. ?to schedule an appointment with an [facility] Primary Care Provider) IF YOU DEVELOP ANY NEW OR WORSENING SYMPTOMS, RETURN TO THE ER! Please read the attached instructions, they highlight more specific treatments and interventions for you at home. Thank you for letting me participate in your care, Lu Brown PA-C Prescriptions: New clotrimazole 1 % cream 1 applic topical BID 14 Days Qty: 30 0RF loratadine 10 mg tablet 10 mg PO DAILY Qty: 7 0RF No Action prenat.vits,kristin,[id number] Tablet 1 tab PO DAILY methylprednisolone [Medrol (Benson)] 4 mg tablets,dose pack See Rx Instructions .ROUTE .COMPLEX Qty: 21 0RF Rx Instructions: orally per package directions triamcinolone acetonide 0.05 % ointment 1 applic topical TID Qty: 110 0RF Referrals: ProviderAndrew [Primary Care Provider] - Stand Alone Forms: Patient Portal/API/Survey
== END 2024-07-27 13:27 | disposition home or self-care (01) ==
PROVIDERS: Emergency Provider Physician Assistant
DX: O90.89 Other complications of the puerperium, not elsewhere classified (principal); R21 Rash and other nonspecific skin eruption
CPT/HCPCS: 99281

== ENCOUNTER 2024-08-02 12:16 | Emergency (ER) | payer OTHER, SELFPAY ==
[2024-08-02 12:36] VITALS: BP 108/71; PULSE 75; RESP 16; TEMP 36.5; O2SAT 98; BMI 25.5
--- NOTE | 2024-08-02 14:48 | ED.RECABL ---
HPI - Recheck/Abnormal Lab/Rx <Lu Brown PA-C - Last Filed: 08/02/24 16:53> General Chief Complaint: Recheck/Abnormal Lab/Rx Stated Complaint: itchy rash all over her body Time Seen by Provider: 08/02/24 14:45 Source: patient Mode of arrival: Ambulatory History of Present Illness HPI narrative: Ms. Mendoza is a very pleasant 29-year-old female with no reported past medical history that is currently about 4 weeks vaginal delivery who presents to the emergency department for worsening rash. I saw the patient in the emergency department on 07/27/2024 and at that time she was having a rash in her groin from the menstrual pad she was using. She was prescribed clotrimazole and states that she used it for about 2 days and then she switched to spray hydrocortisone however that is not resolved her symptoms. States about 4 days ago the rash has spread to her arms and her legs and she is starting to notice it on her back. States that she had a similar rash in the past from an allergic reaction to paint and she needed oral and strong topical steroids. She denies shortness of breath, difficulty breathing, vomiting, fevers, any other concerns. She is . Related Data Home Medications Medication Instructions Recorded Confirmed prenat.vits,kristin,[id number] 1 tab PO DAILY 12/02/20 06/27/23 Previous Rx's Medication Instructions Recorded methylprednisolone 4 mg tablets in See Rx Instructions PO .COMPLEX 10/05/23 a dose pack (Medrol (Benson)) #21 ea triamcinolone acetonide 0.05 % 1 applic topical TID #110 grams 10/05/23 topical ointment clotrimazole 1 % topical cream 1 applic topical BID 2 weeks #30 07/27/24 grams loratadine 10 mg tablet 10 mg PO DAILY #7 tabs 07/27/24 prednisone 20 mg tablet 40 mg (2 x 20 mg) PO DAILY 5 days 08/02/24 #10 tabs triamcinolone acetonide 0.05 % 1 applic topical BID 2 weeks #110 08/02/24 topical ointment grams Allergies Allergy/AdvReac Type Severity Reaction Status Date / Time No Known Drug Allergies Allergy Verified 08/02/24 12:39 Review of Systems <Lu Brown PA-C - Last Filed: 08/02/24 16:53> Review of Systems ROS Unobtainable: All systems reviewed & are unremarkable except as noted in HPI and below Patient History <Lu Brown PA-C - Last Filed: 08/02/24 16:53> Medical History Delivery by section of full-term infant (~07/19/21) Cervical Papanicolaou smear negative within last 12 months (~11/19/19) LGSIL (low grade squamous intraepithelial dysplasia) (~02/14/18) HSIL (high grade squamous intraepithelial lesion) on Pap smear of cervix (~07/13/16) Tonsillitis Surgical History Previous section (~2020) [place] teeth extracted (~2015) Family History Father Family estrangement Grandmother Hypertension Diabetes mellitus Grandfather Old age Brother Depression Social History marital status: number of children: 1 household members: spouse and children lives independently: Yes caregiver/support person: Yes housing: house pets and animals: No education level: college (bachelor's degree) occupational status: employed (active duty [email or web address]) current occupational exposures/hazards: No (Not since learning of ) 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 special deven needs: No travel history: recent (domestic only) seatbelt use: always water heater temp set < 120 deg: Yes working smoke detector in home: Yes fire extinguisher in home: Yes carbon monox detector in home: Yes firearms in home: Yes firearms unloaded and locked: Yes do you feel safe at home: Yes Smoking Status: Never smoker second hand exposure: No alcohol intake: former (~1/week when not ) substance use type: does not use during the past year weight has: remained stable well-balanced diet: daily or most days daily servings fruits/ve-4 caffeine: Yes Type(s) of exercise: walking and running Smoking Status: Never smoker alcohol intake frequency: holidays/special occasions only Exam <Lu Brown PA-C - Last Filed: 08/02/24 16:53> Narrative Exam Narrative: GENERAL: 29 year old patient appears stated age. Well-developed patient, in no acute distress. HEAD: Atraumatic. Normocephalic. EYES: Extraocular motions intact. No scleral icterus. No injection or drainage. ENT: No lesions in oropharynx. Airway patent. NECK: Trachea midline. Cervical ROM intact. CARDIOVASCULAR: Regular rate and rhythm. RESPIRATORY: ?Nonlabored respirations. ?Speaking in clear, full sentences. ?Clear to auscultation. Breath sounds equal bilaterally. No wheezes, rales, or rhonchi. ? EXTREMITIES: No edema or joint tenderness. NEURO: AOx3. ?Clear speech. ?Moves all 4 extremities appropriately. SKIN: Urticarial type rash present on bilateral upper extremities, left arm worse than right arm. Minimal urticaria on bilateral lower extremities. Maculopapular rash throughout groin, spreading onto low back region. No rash on the palms, mucous membranes, trunk. Initial Vital Signs Initial Vital Signs: Vital Signs Temperature 97.7 F 08/02/24 12:36 Pulse Rate 75 08/02/24 12:36 Respiratory Rate 16 08/02/24 12:36 Blood Pressure 108/71 08/02/24 12:36 Pulse Oximetry 98 08/02/24 12:36 Oxygen Delivery Method Room Air 08/02/24 12:36 <Alayna Mistry MD - Last Filed: 08/02/24 18:25> Initial Vital Signs Initial Vital Signs: Vital Signs Temperature 97.7 F 08/02/24 12:36 Pulse Rate 75 08/02/24 12:36 Respiratory Rate 16 08/02/24 12:36 Blood Pressure 108/71 08/02/24 12:36 Pulse Oximetry 98 08/02/24 12:36 Oxygen Delivery Method Room Air 08/02/24 12:36 Course <Lu Brown PA-C - Last Filed: 08/02/24 16:53> Orders Ordered: Discontinued Medications Loratadine (Loratadine 10 Mg Tablet) 10 mg PO NOW ONE Stop: 08/02/24 14:57 Last Admin: 08/02/24 15:12 Dose: 10 mg Documented By: ALIVIA Prednisone (Prednisone 20 Mg Tablet) 40 mg PO NOW ONE Stop: 08/02/24 14:57 Last Admin: 08/02/24 15:12 Dose: 40 mg Documented By: ALIVIA Vital Signs Vital signs: Vital Signs - 8 hr 08/02/24 12:36 08/02/24 15:34 Temperature 97.7 F Pulse Rate 75 73 Respiratory Rate 16 19 Blood Pressure 108/71 130/77 Pulse Oximetry 98 97 Oxygen Delivery Method Room Air Room Air <Alayna Mistry MD - Last Filed: 08/02/24 18:25> Orders Ordered: Discontinued Medications Loratadine (Loratadine 10 Mg Tablet) 10 mg PO NOW ONE Stop: 08/02/24 14:57 Last Admin: 08/02/24 15:12 Dose: 10 mg Documented By: ALIVIA Prednisone (Prednisone 20 Mg Tablet) 40 mg PO NOW ONE Stop: 08/02/24 14:57 Last Admin: 08/02/24 15:12 Dose: 40 mg Documented By: ALIVIA Vital Signs Vital signs: Vital Signs - 8 hr 08/02/24 12:36 08/02/24 15:34 Temperature 97.7 F Pulse Rate 75 73 Respiratory Rate 16 19 Blood Pressure 108/71 130/77 Pulse Oximetry 98 97 Oxygen Delivery Method Room Air Room Air MDM - Recheck/Abnormal Lab/Rx <Lu Brown PA-C - Last Filed: 08/02/24 16:53> Medical Records Attestation: I reviewed the patient's medical records. MDM Narrative Medical decision making narrative: 29-year-old female with no reported past medical history that is currently about 4 weeks vaginal delivery who presents to the emergency department for worsening rash. I saw the patient in the emergency department on 07/27/2024 and at that time she was having a rash in her groin from the menstrual pad she was using. Differential diagnosis includes but is not limited to urticaria, allergic reaction, allergic dermatitis, contact dermatitis, intertrigo, etc. On exam the patient is in no acute distress, nontoxic appearing, vital signs within normal limits, no mucous membrane lesions, oropharynx widely patent. Erythematous rash that was in her groin a few days ago is now spread to the low back with urticaria on upper and lower extremities. Patient was previously prescribed clotrimazole to use for 2 weeks however she states that she stopped using it after 2 days and switch to hydrocortisone spray but rash has continued to get worse. She reports a history of sensitive skin and having similar rash in the past due to paint exposure. This time I suspect the patient's symptoms are likely related to an allergic/contact dermatitis from the menstrual pads that started her symptoms. We will treat her with oral loratadine, topical triamcinolone, short course of prednisone. Discussed prednisone use during . Patient was given 1st dose of medications in the ER, prescription sent to her pharmacy of choice. Advised PCP and OBGYN follow up. She verbalized understanding of all information and is requesting discharge. She is stable for discharge at this time. Discharge Plan Departure Patient Disposition: Home Clinical Impression: Urticaria Contact dermatitis Qualifiers: Contact dermatitis type: unspecified Contact dermatitis trigger: other trigger Qualified Code(s): L25.8 - Unspecified contact dermatitis due to other agents Instructions: DI for Hives Activity Restrictions/Additional Instructions: Today we are treating you for hives or allergic skin reaction likely caused by irritation from the menstrual pads you are using. I have prescribed an oral and a topical steroid. Please complete the full course of oral steroids in addition to taking a daily allergy pill such as loratadine which was previously prescribed. I have also prescribed a topical steroid that you can apply to rash twice daily for the next 2 weeks or until the rash is gone. Please follow up with your primary care doctor within the next 2-3 days for ER follow-up. (If you do not have a PCP you can call [phone]. ?to schedule an appointment with an [facility] Primary Care Provider) IF YOU DEVELOP ANY NEW OR WORSENING SYMPTOMS, RETURN TO THE ER! Please read the attached instructions, they highlight more specific treatments and interventions for you at home. Thank you for letting me participate in your care, Lu Brown PA-C Prescriptions: New triamcinolone acetonide 0.05 % ointment 1 applic topical BID 14 Days Qty: 110 0RF prednisone 20 mg tablet 40 mg PO DAILY 5 Days Qty: 10 0RF No Action prenat.vits,kristin,[id number] Tablet 1 tab PO DAILY methylprednisolone [Medrol (Benson)] 4 mg tablets,dose pack See Rx Instructions .ROUTE .COMPLEX Qty: 21 0RF Rx Instructions: orally per package directions triamcinolone acetonide 0.05 % ointment 1 applic topical TID Qty: 110 0RF clotrimazole 1 % cream 1 applic topical BID 14 Days Qty: 30 0RF loratadine 10 mg tablet 10 mg PO DAILY Qty: 7 0RF Referrals: Provider,Andrew CLARKE [Primary Care Provider] - Stand Alone Forms: Patient Portal/API/Survey ED Sign-out <Alayna Mistry MD - Last Filed: 08/02/24 18:25> Cosign ED Attending Cosignature Attestation: I was immediately available in the department for consultation throughout this patient's visit. Alayna Mistry MD
[2024-08-02] MEDS: predniSONE 20 MG TABLET 40 MG PO (15:12)
[2024-08-02] MEDS: LORATADINE 10 MG TABLET PO (15:12)
[2024-08-02 15:34] VITALS: BP 130/77; PULSE 73; RESP 19; O2SAT 97
== END 2024-08-02 15:35 | disposition home or self-care (01) ==
PROVIDERS: Emergency Provider Physician Assistant
DX: L50.9 Urticaria, unspecified (principal); L25.8 Unspecified contact dermatitis due to other agents
CPT/HCPCS: 99283

== ENCOUNTER 2025-05-11 14:55 | Emergency (ER) | payer OTHER, SELFPAY ==
[2025-05-11 15:15] VITALS: BP 139/84; PULSE 68; RESP 14; TEMP 36.8; O2SAT 100; BMI 23.4
[2025-05-11 17:37] VITALS: BP 164/96; PULSE 61; RESP 16; TEMP 36.7; O2SAT 99
--- NOTE | 2025-05-11 17:40 | ED.ALLEREA ---
HPI - Allergic Reaction General Chief complaint: Allergic Reaction Stated complaint: SKIN RASH BOTH ARMS Time Seen by Provider: 05/11/25 17:33 Source: patient Mode of arrival: Ambulatory History of Present Illness HPI narrative: 29-year-old female who presents with itchy rash for several days over the upper extremities. She has history of the same without known trigger. Denies any new lotions or creams, body washes. No new clothes. No significant time spent out of doors or new detergents. She reports has improved with steroids in the past and hoping to get some of these today. Denies any fever or systemic symptoms otherwise. No lesions or painful sores in the mouth or vaginal mucosa she says. No recent antibiotic use or prescription drugs that are new Related Data Home Medications ?Medication ?Instructions ?Recorded ?Confirmed prenat.vits,kristin,[id number] 1 tab PO DAILY 12/02/20 06/27/23 Previous Rx's ?Medication ?Instructions ?Recorded methylprednisolone 4 mg tablets in See Rx Instructions PO .COMPLEX 10/05/23 a dose pack (Medrol (Benson)) #21 ea triamcinolone acetonide 0.05 % 1 applic topical TID #110 grams 10/05/23 topical ointment loratadine 10 mg tablet 10 mg PO DAILY #7 tabs 07/27/24 prednisone 50 mg tablet 50 mg PO DAILY 5 days #5 tabs 05/11/25 Allergies Allergy/AdvReac Type Severity Reaction Status Date / Time No Known Drug Allergies Allergy Verified 08/02/24 12:39 Review of Systems Review of Systems Narrative: Pertinent ROS obtained and negative except as stated in HPI Patient History Medical History Delivery by section of full-term infant (~07/19/21) Cervical Papanicolaou smear negative within last 12 months (~11/19/19) LGSIL (low grade squamous intraepithelial dysplasia) (~02/14/18) HSIL (high grade squamous intraepithelial lesion) on Pap smear of cervix (~07/13/16) Tonsillitis Surgical History Previous section (~2020) [place] teeth extracted (~2015) Family History Father Family estrangement Grandmother Hypertension Diabetes mellitus Grandfather Old age Brother Depression Social History marital status: number of children: 1 household members: spouse and children lives independently: Yes caregiver/support person: Yes housing: house pets and animals: No education level: college (bachelor's degree) occupational status: employed (active duty [employer]) current occupational exposures/hazards: No (Not since learning of ) 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/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: Mandaen special deven needs: No travel history: recent (domestic only) seatbelt use: always water heater temp set < 120 deg: Yes working smoke detector in home: Yes fire extinguisher in home: Yes carbon monox detector in home: Yes firearms in home: Yes firearms unloaded and locked: Yes do you feel safe at home: Yes Smoking Status: Never smoker second hand exposure: No alcohol intake: former (~1/week when not ) substance use type: does not use during the past year weight has: remained stable well-balanced diet: daily or most days daily servings fruits/ve-4 caffeine: Yes Type(s) of exercise: walking and running Smoking Status: Never smoker alcohol intake frequency: holidays/special occasions only Exam Initial Vital Signs Initial Vital Signs: Vital Signs Temperature 98.3 F 05/11/25 15:15 Pulse Rate 68 05/11/25 15:15 Respiratory Rate 14 05/11/25 15:15 Blood Pressure 139/84 05/11/25 15:15 Pulse Oximetry 100 05/11/25 15:15 Oxygen Delivery Method Room Air 05/11/25 15:15 Constitutional: Well appearing, no acute distress Head: NCAT Cardiovascular: normal rate, appears well perfused Pulmonary: normal effort Extremities: No LE edema Skin: warm and dry. Across the upper extremities there are patchy faint areas of urticaria that appears several days old. No open sores or lesions. No bullae or vesicles Neurological: Alert Course Orders Ordered: Discontinued Medications Prednisone (Prednisone 20 Mg Tablet) 40 mg PO NOW ONE Stop: 05/11/25 17:41 Last Admin: 05/11/25 17:47 Dose: 40 mg Documented By: AI Vital Signs Vital signs: Vital Signs - 8 hr 05/11/25 15:15 05/11/25 17:37 Temperature 98.3 F 98.1 F Pulse Rate 68 61 Respiratory Rate 14 16 Blood Pressure 139/84 164/96 H Pulse Oximetry 100 99 Oxygen Delivery Method Room Air Room Air MDM - Allergic Reaction MDM Narrative Medical decision making narrative: Patient presents with worsening urticaria. She has history of the same without known trigger. No systemic symptoms endorsed. Vital signs here are normal. Patient nontoxic. Rashes described above is consistent with urticaria. Recommend keep a symptom journal. Recommended continued use of antihistamine. She is offered prescription for steroid and referred to PCP/health companion for allergy testing. Return precautions discussed and provided prior to discharge Discharge Plan Departure Patient Disposition: Home Clinical Impression: Urticaria Instructions: DI for Hives Activity Restrictions/Additional Instructions: Please follow up with your family doctor regarding your symptoms and for recheck of your rash. Return to the emergency department for worsening rash despite steroids or new symptoms such as sores or wounds you notice on your oral mucosa or vaginal area, fever, deep purple rash or other symptoms that are concerning to you. I think allergy testing is a great next step. You could also keep a journal of symptoms to try to identify a pattern of exposure that may be causing your symptoms Prescriptions: New prednisone 50 mg tablet 50 mg PO DAILY 5 Days Qty: 5 0RF No Action prenat.vits,kristin,[id number] Tablet 1 tab PO DAILY methylprednisolone [Medrol (Benson)] 4 mg tablets,dose pack See Rx Instructions .ROUTE .COMPLEX Qty: 21 0RF Rx Instructions: orally per package directions triamcinolone acetonide 0.05 % ointment 1 applic topical TID Qty: 110 0RF loratadine 10 mg tablet 10 mg PO DAILY Qty: 7 0RF Referrals: ProviderAndrew [Primary Care Provider, Family Practice] Stand Alone Forms: Patient Portal/API
== END 2025-05-11 18:03 | disposition home or self-care (01) ==
PROVIDERS: Emergency Provider Student in an Organized Health Care Education/Training Program
DX: L50.9 Urticaria, unspecified (principal)
CPT/HCPCS: 99283